=== PATIENT | female | born 1965 | race Caucasian/White ===

== ENCOUNTER 2022-01-20 06:23 | Outpatient (REF) | payer OTHER, SELFPAY ==
[2022-01-20 06:39] LABS: MANUAL DIFF FLAG NO
[2022-01-20 07:34] LABS: Basophils Absolute Auto 0.1 X10*3/uL (0.0-0.2); Basophils Percent Auto 0.5 % (0-2); Eosinophils Absolute Auto 0.2 X10*3/uL (0.0-0.4); Eosinophils Percent Auto 2.3 % (0-4); Hematocrit 45.5 % (37.0-47.0); Hemoglobin 14.5 g/dl (12.0-16.0); Imm Gran Abs Auto 0.04 X10*3/uL (0.00-0.03); Imm Gran Pct Auto 0.4 % (0.0-0.4); Lymphocytes Absolute Auto 2.8 X10*3/uL (1.2-4.9); Lymphocytes Percent Auto 26.8 % (20-40); Mean Corpuscular HGB Conc 31.9 g/dl (31.0-35.0); Mean Corpuscular Hemoglobin 27.9 pg (27.0-33.0); Mean Corpuscular Volume 87.7 fL (80.0-98.0); Mean Platelet Volume 11.2 fL (9.4-12.3); Monocytes Absolute Auto 0.8 X10*3/uL (0.1-1.2); Monocytes Percent Auto 7.1 % (2-11); Neutrophils Absolute Auto 6.6 x10*3/uL (2.0-8.3); Neutrophils Percent Auto 62.9 % (45-73); Platelet Count 226 X10*3/uL (160-400); Red Blood Count 5.19 X10*6/uL (4.20-5.50); Red Cell Distribution Width 12.7 % (11.0-16.0); White Blood Count 10.6 X10*3/uL (4.8-10.8)
[2022-01-20 08:04] LABS: Estimated Average Glucose 212 mg/dL
[2022-01-20 08:14] LABS: Alanine Aminotransferase 17 U/L (0-31); Alkaline Phosphatase 72 U/L (39-117); Anion Gap 13 (12-20); Aspartate Amino Transferase 19 U/L (5-31); Bilirubin Total 0.4 mg/dL (0.0-1.0); Blood Urea Nitrogen 16 mg/dL (9-16); Calcium 9.8 mg/dL (8.4-10.2); Carbon Dioxide 26 mmol/L (22-29); Chloride 103 mmol/L (96-108); Cholesterol 128 mg/dL; Estimated Glomerular Filt Rate > 60; Glucose Fasting 206 mg/dL (60-99); HDL Cholesterol 37 mg/dL; LDL Cholesterol Calculated 56 mg/dl; Potassium 4.9 mmol/L (3.3-5.1); Sodium 137 mmol/L (135-145); TSH reflex Free T4 1.27 uIU/mL (0.32-4.0); Total Protein 6.9 g/dL (6.5-8.0); Triglycerides 175 mg/dL
[2022-01-20 17:09] LABS: Microalbum/Creatinine Ratio Ur 60.2 ug/mg cr
== END 2022-01-20 06:24 | disposition home or self-care (01) ==
LOC: HO.LAB 06:23
PROVIDERS: PCP Internal Medicine; Visit Provider Nurse Practitioner Family
DX: E11.9 Type 2 diabetes mellitus without complications (principal); E78.00 Pure hypercholesterolemia, unspecified; I10 Essential (primary) hypertension
CPT/HCPCS: 36415; 80053; 80061; 82043; 83036; 84443; 85025

== ENCOUNTER 2022-01-23 07:57 | Outpatient (REF) | payer OTHER, SELFPAY ==
--- NOTE | ~2022-01-23 | MM_ITS ---
EXAMINATION: MM SCREENING DIGITAL BREAST TOMOSYNTHESIS, BILATERAL CLINICAL INFORMATION: Screening. Asymptomatic. Prior mammography over 10 years ago. Age 56. No known family history breast cancer. The lifetime risk of breast cancer based on the Tyrer-Cuzick Model is 6%. COMPARISON: None. TECHNIQUE: Digital breast tomosynthesis is performed in both the craniocaudal and mediolateral oblique views along with computer-aided detection (CAD). Synthesized 2D images are generated from the tomosynthesis. FINDINGS: The breasts are heterogeneously dense, which may obscure small masses (ACR BI-RADS breast composition Category c). Denser parenchymal pattern is predominantly in the bilateral anterior breasts. There is no significant mass or architectural abnormality or abnormal calcifications. The axilla and skin contours are unremarkable. MM/MM tomosynthesis screening BI IMPRESSION: No mammographic evidence of malignancy. ASSESSMENT: BI-RADS 1: Negative RECOMMENDATION: Routine annual mammography screening. This patient's information was entered into a reminder system with a target due date for their next mammogram.
== END 2022-01-23 07:58 | disposition home or self-care (01) ==
LOC: HO.MAMMO 07:57
PROVIDERS: Visit Provider Nurse Practitioner Family
DX: Z12.31 Encounter for screening mammogram for malignant neoplasm of breast (principal)
CPT/HCPCS: 77063; 77067

== ENCOUNTER 2022-04-26 08:08 | Outpatient (REF) | payer OTHER, SELFPAY ==
[2022-04-26 08:14] LABS: MANUAL DIFF FLAG NO
[2022-04-26 09:13] LABS: Basophils Percent Auto 0.4 % (0-2); Eosinophils Absolute Auto 0.2 X10*3/uL (0.0-0.4); Eosinophils Percent Auto 1.8 % (0-4); Hematocrit 44.5 % (37.0-47.0); Hemoglobin 14.5 g/dl (12.0-16.0); Imm Gran Abs Auto 0.03 X10*3/uL (0.00-0.03); Imm Gran Pct Auto 0.3 % (0.0-0.4); Lymphocytes Absolute Auto 2.4 X10*3/uL (1.2-4.9); Lymphocytes Percent Auto 23.3 % (20-40); Mean Corpuscular HGB Conc 32.6 g/dl (31.0-35.0); Mean Corpuscular Hemoglobin 28.7 pg (27.0-33.0); Mean Corpuscular Volume 87.9 fL (80.0-98.0); Mean Platelet Volume 10.9 fL (9.4-12.3); Monocytes Absolute Auto 0.6 X10*3/uL (0.1-1.2); Neutrophils Absolute Auto 6.9 x10*3/uL (2.0-8.3); Neutrophils Percent Auto 68.2 % (45-73); Platelet Count 265 X10*3/uL (160-400); Red Blood Count 5.06 X10*6/uL (4.20-5.50); Red Cell Distribution Width 13.4 % (11.0-16.0); White Blood Count 10.1 X10*3/uL (4.8-10.8)
[2022-04-26 09:24] LABS: Estimated Average Glucose 166 mg/dL; Hemoglobin A1c % 7.4 %
[2022-04-26 09:49] LABS: Alanine Aminotransferase 22 U/L (0-31); Albumin Level 4.1 g/dL (3.5-5.0); Alkaline Phosphatase 66 U/L (39-117); Anion Gap 16 (12-20); Aspartate Amino Transferase 27 U/L (5-31); Bilirubin Total 0.5 mg/dL (0.0-1.0); Blood Urea Nitrogen 12 mg/dL (9-16); Calcium 9.2 mg/dL (8.4-10.2); Carbon Dioxide 26 mmol/L (22-29); Chloride 102 mmol/L (96-108); Cholesterol 136 mg/dL; Estimated Glomerular Filt Rate > 60; Glucose Fasting 159 mg/dL (60-99); HDL Cholesterol 41 mg/dL; LDL Cholesterol Calculated 74 mg/dl; Potassium 4.7 mmol/L (3.3-5.1); Sodium 139 mmol/L (135-145); Triglycerides 108 mg/dL
== END 2022-04-26 08:09 | disposition home or self-care (01) ==
LOC: HO.LAB 08:08
PROVIDERS: PCP Internal Medicine; Visit Provider Nurse Practitioner Family
DX: E78.00 Pure hypercholesterolemia, unspecified (principal); E11.9 Type 2 diabetes mellitus without complications; I10 Essential (primary) hypertension
CPT/HCPCS: 36415; 80053; 80061; 83036; 85025

== ENCOUNTER 2022-09-29 08:43 | Outpatient (REF) | payer OTHER, SELFPAY ==
[2022-09-29 09:23] LABS: Estimated Average Glucose 157 mg/dL; Hemoglobin A1c % 7.1 %
[2022-09-29 09:43] LABS: Alanine Aminotransferase 16 U/L (0-31); Albumin Level 4.1 g/dL (3.5-5.0); Alkaline Phosphatase 78 U/L (39-117); Anion Gap 17 (12-20); Aspartate Amino Transferase 20 U/L (5-31); Bilirubin Total 0.5 mg/dL (0.0-1.0); Blood Urea Nitrogen 11 mg/dL (9-16); Calcium 9.4 mg/dL (8.4-10.2); Carbon Dioxide 27 mmol/L (22-29); Chloride 102 mmol/L (96-108); Cholesterol 126 mg/dL; Estimated Glomerular Filt Rate > 60; Glucose Random 161 mg/dL (60-115); HDL Cholesterol 43 mg/dL; LDL Cholesterol Calculated 59 mg/dl; Potassium 4.8 mmol/L (3.3-5.1); Sodium 141 mmol/L (135-145); Total Protein 7.1 g/dL (6.5-8.0); Triglycerides 122 mg/dL
[2022-09-29 13:31] LABS: Creatinine Urine 89.21 mg/dL; Microalbum/Creatinine Ratio Ur 219.7 ug/mg cr
== END 2022-09-29 08:44 | disposition home or self-care (01) ==
LOC: HO.LAB 08:43
PROVIDERS: PCP Internal Medicine; Visit Provider Nurse Practitioner Family
DX: E78.5 Hyperlipidemia, unspecified (principal); E11.9 Type 2 diabetes mellitus without complications
CPT/HCPCS: 36415; 80053; 80061; 82043; 83036

== ENCOUNTER 2022-12-28 14:00 | Outpatient (RCR) | payer OTHER, SELFPAY ==
--- NOTE | 2022-10-20 14:52 | MHC.PT.EP ---
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 IN JUNE WAS WALKING 2-3 MILES A DAY, BEGAN TO FEEL INCREASING PAIN. TOOK A BREAK FROM WALKING THEN IN AUGUST WENT TO [place] AND PAIN INCREASED AGAIN. WITH REST IMPROVED AGAIN BUT THEN ABOUT 1 WEEK AGO PAIN BEGAN AGAIN WITHOUT CEASAR. STAIRS ARE DIFFULT TO PRFORM. PAIN WILL BE SHARP AND TIMES AND WILL FEEL LIKE KNEE IS GOING TO GIVE OUT. REPORTS INTERMENT CREPTUS. UNSURE OF WHAT RELIEVES SYMPTOMS, NOT CURRENTLY TAKING ANY MEDICATION FOR PAIN. UPON EXAM SHE DEMONSTRATES DECREASED FOOT AND ANKLE MOBILITY, ALTERED GAIT PATTERN, DECREASED LE ROM AND STRENGTH, INCREASED TTP OVER ANTERIOR TIB AND PES ANSERINE BURSA. FUNCTIONAL LIMITATIONS INCLDE DECREASED ABILITY TO PERFORM WALKING, LONG PERIODS OF SITTING STATIC STANDING, DECREASED STAIR NEGOTIATION. SHE REPORTS DECREASED ABILITY TO PERFORM FUNCTIONAL SQUAT, DECREASED PARTICIPATION IN RECREATION AND FITNESS ACTIVITES, DISRUPTED SLEEP. Frequency and Duration: The patient will be seen 2 X WEEK FOR 3 WEEKS Short Term Goals: INITIATE HEP AND PROMOTE SELF MANAGEMENT OF SYMPTOMS Umbrella Finisher Goals: TO DEMONSTRATE FULL KNEE ROM, EQUAL ERWIN TO DEMONSTRATE FULL LE STRENGTH, EQUAL ERWIN TO ASCEND AND DESCEND STAIRS WITH RECIPROCAL GAIT WITHOUT TO AMBULATE AD MISTY ON LEVEL AND UNEVEN SURFACES FOR FITNESS WITHOUT PAIN GREATER THAN 2/10 TO PERFORM FULL FUNCTIONAL SQUAT WITHOUT SUBSTITUTION Treatment Plan: Modalities to reduce pain, spasms and effusion. Manual therapy to restore motion and function. Therapeutic exercise to improve strength and flexibility. Neuromuscular re-education for posture and balance. Therapeutic activities to return to functional activities of daily living. Electronically signed by: BARBARA LUNDY PT DPT Please sign and return to therapist. Thank you for your referral.
== END 2023-01-15 08:36 | disposition home or self-care (01) ==
LOC: HO.PT 14:00
PROVIDERS: PCP Internal Medicine; Visit Provider Nurse Practitioner Family
DX: M25.561 Pain in right knee (principal)
CPT/HCPCS: 97033; 97110; 97140; 97161; 97530

== ENCOUNTER 2023-02-16 16:05 | Outpatient (REF) | payer OTHER, SELFPAY ==
--- NOTE | ~2023-02-16 | MM_ITS ---
EXAMINATION: MM SCREENING DIGITAL BREAST TOMOSYNTHESIS, BILATERAL CLINICAL INFORMATION: Screening. Asymptomatic. The lifetime risk of breast cancer based on the Tyrer-Cuzick Model is 4%. COMPARISON: Mammography: 01/23/2022 (new baseline) TECHNIQUE: Digital breast tomosynthesis is performed in both the craniocaudal and mediolateral oblique views along with computer-aided detection (CAD). Synthesized 2D images are generated from the tomosynthesis. FINDINGS: The breasts are heterogeneously dense, which may obscure small masses (ACR BI-RADS breast composition Category c). There are no significant masses, abnormal calcifications, or other abnormalities. Parenchymal pattern is similar to prior exam. There is no architectural abnormality or developing density. Intramammary node posterior upper outer left breast is stable. The axilla and skin contours are unremarkable. No significant changes. MM/MM tomosynthesis screening BI IMPRESSION: No mammographic evidence of malignancy. ASSESSMENT: BI-RADS 1: Negative RECOMMENDATION: Routine annual mammography screening. This patient's information was entered into a reminder system with a target due date for their next mammogram.
== END 2023-02-16 16:06 | disposition home or self-care (01) ==
LOC: HO.MAMMO 16:05
PROVIDERS: PCP Internal Medicine; Visit Provider Internal Medicine
DX: Z12.31 Encounter for screening mammogram for malignant neoplasm of breast (principal)
CPT/HCPCS: 77063; 77067

== ENCOUNTER → 2023-03-09 07:49 | Outpatient (BNVA) | payer OTHER, SELFPAY | PROVIDERS: PCP Internal Medicine; Visit Provider Advanced Practice Midwife ==

== ENCOUNTER 2023-06-18 11:07 | Outpatient (AMB) | payer OTHER, SELFPAY ==
--- NOTE | 2023-06-18 11:12 | MHC.PC.OV ---
Vital Signs 06/18/23 11:16 Height 5 ft 3 in Weight 228 lb BMI 40.4 BP 136/82 Blood Pressure Location Lt brachial Position Sitting Intake Visit Reasons: dm Intake Note: Patient here for a follow up DM Counter Former Required: No Accompanied by: Self / Same As Patient Allergies Penicillins Allergy (Intermediate, Verified 06/18/23 11:23) Anaphylaxis Medication List - Last Reconciled 06/18/23 by Miranda Trejo MD aspirin 81 mg PO DAILY blood sugar diagnostic test twice a day dulaglutide (Trulicity) 0.75 mg (0.5 mL) subcut QWEEK 30 days glipizide 5 mg PO BID 90 days lisinopril 10 mg PO DAILY 90 days metformin 1,000 mg (2 x 500 mg) PO BID 90 days simvastatin 20 mg PO BEDTIME Tobacco use date assessed: 09/29/22 Dental Screening Dental Screen Date: 06/18/23 Did you have a dental visit in the last 12 months?: No Did you have a dental problem in the last 6 months where you did not have access to dental care?: No Was dental information given to patient?: Patient has dentist HPI HPI Comments History of Present Illness Details This is a 57-year-old female with diabetes mellitus type 2, hypertension, hyperlipidemia and morbid obesity that comes today for follow-up on her conditions. A1c very close to goal and has markedly improved from last office visit. Blood pressure stable. Lipid panel will be order and her LDL goal should be less than 70. She is morbidly obese with a BMI of 40.4 and was advised to diet and exercise to reach BMI goal less than 30. Also microalbumin is elevated and will be repeated. 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 Gilbert Dumont, Supriya Cifuentes, Abilio Moffett and colleagues, with an educational brielle from [employer]. Review of Systems Const All systems reviewed & are unremarkable except as noted in HPI and below Eyes Reports no additional complaints, Denies change in vision and Denies other visual disturbances Card Denies chest pain at rest, Denies chest pain with activity, Denies edema, Denies irregular heart rhythm, Denies claudication, Denies dyspnea, Denies dyspnea on exertion, Denies orthopnea, Denies paroxysmal nocturnal dyspnea and Denies slow heart rate Resp Denies cough, Denies dyspnea and Denies dyspnea on exertion GI Denies abdominal pain, Denies change in bowel habits, Denies excessive flatus, Denies nausea and Denies vomiting Denies urinary incontinence, Denies urinary hesitancy and Denies urinary urgency Musc Denies abnormal gait, Denies atrophy, Denies deformity and Denies limited range of motion Skin/Breast Denies bleeding lesions, Denies changing lesions and Denies rash Neuro Denies abnormal gait and Denies lack of coordination Physical exam (Primary Care) Vital Signs: Last Vital Signs BP 136/82 06/18/23 11:16 BMI result Body Mass Index 40.4 Tobacco/Smoking Status: Tobacco use Status Tobacco use date assessed 09/29/22 06/18/23 11:15 Patient Tobacco Use Status Current everyday Tobacco 06/18/23 11:15 Tobacco use type Cigarette 06/18/23 11:15 e-Cigarette/Vaping Use Never Used 06/18/23 11:15 Thrive Assessment: Date of Thrive Assessment Date Thrive assessed 09/29/22 06/18/23 11:15 Eyes General: appearance normal, both eyes and all related structures Eyelids: Yes eyelids normal Conjunctivae: conjunctivae normal Neck Neck: Yes normal visual inspection and Yes supple Resp Effort & Inspection: normal respiratory effort Auscultation: clear to auscultation bilaterally Cardio Jugular venous distension: no JVD Rate: regular rate Rhythm: regular rhythm Heart sounds: S1 normal heart sound present and S2 normal heart sound present Extrem General: Yes full ROM Office Procedures Flu Questionnaire Does the patient have a severe egg allergy?: No Results AMB Hemoglobin A1c AMB Hemoglobin A1c 7.2 % Last Edit by SHANT Hare on 06/18/23 11:27 Immunizations flu vacc [id number] 6mos up(PF) 60 mcg(15 mcgx4)/0.5 mL IM syringe Performing Provider: Miranda Trejo MD [facility] Documented (not given) by: SHANT Hare on 06/18/23 11:20 Reason Not Given: Patient Refused Assessment and Plan Assessment & Plan (1) Diabetes mellitus: Code(s): E11.9 - Type 2 diabetes mellitus without complications Plan: Continue metformin, glipizide and Trulicity. A1c goal is equal or less than 7%. (2) Essential hypertension: Code(s): I10 - Essential (primary) hypertension Plan: Continue lisinopril. Blood pressure goal is equal or less than 130/80. (3) Hyperlipidemia: Code(s): E78.5 - Hyperlipidemia, unspecified Plan: Continue statins. LDL goal is less than 70. (4) Morbid obesity: Code(s): E66.01 - Morbid (severe) obesity due to excess calories Plan: Start diet and exercise. BMI goal is less than 30. Orders: Orders Microalbumin, Random (w Creat) 4 Months E11.9 - Type 2 diabetes mellitus without complications Comprehensive [place]. Panel Fast 4 Months I10 - Essential (primary) hypertension AMB Hemoglobin A1c Today E11.9 - Type 2 diabetes mellitus without complications Influenza [id number] Immunization Today Z23 - Encounter for immunization Lipid Panel 4 Months E78.5 - Hyperlipidemia, unspecified Coding Level of Care Code Est Pt Level 4 (38784) Diagnoses Diabetes mellitus E11.9 Essential hypertension I10 Hyperlipidemia E78.5 Morbid obesity E66.01 Time Spent (min) 23
[2023-06-18 11:16] VITALS: BP 136/82; BMI 40.4
== END 2023-06-18 11:29 | disposition home or self-care (01) ==
PROVIDERS: Visit Provider Internal Medicine
DX: E11.9 Type 2 diabetes mellitus without complications (principal); I10 Essential (primary) hypertension; E66.01 Morbid (severe) obesity due to excess calories; Z68.41 Body mass index [BMI] 40.0-44.9, adult
CPT/HCPCS: 83036; 99214

== ENCOUNTER 2024-01-29 06:16 | Outpatient (REF) | payer OTHER, SELFPAY ==
[2024-01-29 08:40] LABS: Alanine Aminotransferase 27 U/L (0-31); Alkaline Phosphatase 87 U/L (39-117); Anion Gap 17 (12-20); Aspartate Amino Transferase 38 U/L (5-31); Bilirubin Total 0.5 mg/dL (0.0-1.0); Blood Urea Nitrogen 22 mg/dL (9-16); Calcium 9.5 mg/dL (8.4-10.2); Carbon Dioxide 23 mmol/L (22-29); Chloride 103 mmol/L (96-108); Cholesterol 114 mg/dL (<200); Estimated Glomerular Filt Rate > 60; Glucose Fasting 328 mg/dL (60-99); HDL Cholesterol 41 mg/dL (>40); LDL Cholesterol Calculated 54 mg/dL (<100); Potassium 5.1 mmol/L (3.3-5.1); Sodium 138 mmol/L (135-145); Total Protein 7.6 g/dL (6.5-8.0); Triglycerides 95 mg/dL (<150)
[2024-01-29 08:57] LABS: Vitamin D 25-OH Total 18.5 ng/mL (>30)
[2024-01-29 18:43] LABS: Creatinine Urine 58.38 mg/dL; Microalbum/Creatinine Ratio Ur 111.3 ug/mg cr (<30)
== END 2024-01-29 06:17 | disposition home or self-care (01) ==
LOC: HO.LAB 06:16
PROVIDERS: PCP Internal Medicine; Visit Provider Internal Medicine
DX: E11.9 Type 2 diabetes mellitus without complications (principal); E78.5 Hyperlipidemia, unspecified; E55.9 Vitamin D deficiency, unspecified
CPT/HCPCS: 36415; 80053; 80061; 82043; 82306; 82570

== ENCOUNTER 2024-01-30 14:48 | Outpatient (AMB) | payer OTHER, SELFPAY ==
[2024-01-30 14:53] VITALS: BP 146/70; BMI 40.9
--- NOTE | 2024-01-30 14:53 | MHC.PC.OV ---
Vital Signs 01/30/24 14:53 01/30/24 15:26 Height 5 ft 3 in Weight 231 lb BMI 40.9 BP 146/70 H 140/70 H Blood Pressure Location Lt brachial Lt brachial Position Sitting Sitting Intake Visit Reasons: DM Intake Note: Patient here for a follow up DM Auditor In Charge Required: No Accompanied by: Self / Same As Patient Allergies Penicillins Allergy (Intermediate, Verified 01/30/24 15:11) Anaphylaxis Medication List - Last Reconciled 01/30/24 by Miranda Trejo MD aspirin 81 mg PO DAILY blood sugar diagnostic test twice a day dulaglutide (Trulicity) 0.75 mg (0.5 mL) subcut QWEEK 30 days glipizide 5 mg PO BID 90 days lisinopril 10 mg PO DAILY 90 days metformin 1,000 mg (2 x 500 mg) PO BID 90 days simvastatin 20 mg PO BEDTIME Tobacco use date assessed: 01/30/24 Dental Screening Dental Screen Date: 01/30/24 Did you have a dental visit in the last 12 months?: No Did you have a dental problem in the last 6 months where you did not have access to dental care?: No Was dental information given to patient?: Patient has dentist HPI HPI Comments History of Present Illness Details This is a 58-year-old female with diabetes mellitus type 2, hypertension, hyperlipidemia and morbid obesity that comes today for follow-up on her conditions. A1c elevated and she declines insulin. Has not used Trulicity in about a month. I will change Trulicity to Ozempic. Blood pressure borderline stable. LDL within goal. She is morbidly obese with a BMI of 40.9 and was advised to diet and exercise as tolerated to reach BMI goal less than 30. 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 1. Little interest or pleasure in doing things: not at all 2. Feeling down, depressed, or hopeless: not at all 3. Trouble falling or staying asleep, or sleeping too much: not at all 4. Feeling tired or having little energy: not at all 5. Poor appetite or overeating: not at all 6. Feeling bad about yourself - or that you are a failure or have let yourself or your family down: not at all 7. Trouble concentrating on things, such as reading the newspaper or watching television: not at all 8. Moving or speaking so slowly that other people could have noticed. Or the opposite - being so fidgety or restless that you have been moving around a lot more than usual: not at all 9. Thoughts that you would be better off or of hurting yourself in some way: not at all Total score: 0 Source: Developed by Drs. Gilbert Dumont, Supriya Cifuentes, Abilio Moffett and colleagues, with an educational brielle from [employer]. Thrive Questionnaire Date Thrive assessed: 01/30/24 I am a: Patient What is your living situation today?: I have a steady place to live Within the past 12 months, did the food you bought not last and you didn't have the money to get more?: Never true Within the past 12 months, did you worry whether your food would run out before you got money to buy more?: Never true Do you have trouble paying for medicines?: No Do you have trouble getting transportation to medical appointments?: No Do you have trouble paying your heating and electricity bill?: No Do you have trouble taking care of your child, family member or friend?: No Do you have trouble with day-to-day activities such as bathing, preparing meals, shopping, managing finances, etc.?: No Are you currently unemployed and looking for a job?: No Are you interested in more education?: No Please select the resources that you would like help with: None Currently or been in a relationship where the following occur: no concerns reported THRIVE Score: 0 AUDIT C Alcohol Use Questionnaire (AUDIT-C) 1. How often do you have a drink containing alcohol?: Never Total Score: 0 GARRY-7 AMB Questionnaire GARRY-7 Date GARRY - 7 assessed: 01/30/24 Feeling nervous, anxious, or on edge: 0 = Not at all Not being able to stop or control worryin = Not at all Worrying too much about different things: 0 = Not at all Trouble relaxin = Not at all Being so restless that it is hard to sit still: 0 = Not at all Becoming easily annoyed or irritable: 0 = Not at all Feeling afraid as if something awful might happen: 0 = Not at all Total GARRY-7 score (0-4 normal; 5-9 mild; 10-14 moderate; 15-21 severe): 0 Source: Developed by Drs. Gilbert Dumont, Supriya Cifuentes, Abilio Moffett and colleagues, with an educational brielle from [employer]. Review of Systems Const All systems reviewed & are unremarkable except as noted in HPI and below Eyes Reports no additional complaints, Denies change in vision and Denies other visual disturbances Card Denies chest pain at rest, Denies chest pain with activity, Denies edema, Denies irregular heart rhythm, Denies claudication, Denies dyspnea, Denies dyspnea on exertion, Denies orthopnea, Denies paroxysmal nocturnal dyspnea and Denies slow heart rate Resp Denies cough, Denies dyspnea and Denies dyspnea on exertion GI Denies abdominal pain, Denies change in bowel habits, Denies excessive flatus, Denies nausea and Denies vomiting Denies urinary incontinence, Denies urinary hesitancy and Denies urinary urgency Musc Denies abnormal gait, Denies atrophy, Denies deformity and Denies limited range of motion Skin/Breast Denies bleeding lesions, Denies changing lesions and Denies rash Neuro Denies abnormal gait and Denies lack of coordination Physical exam (Primary Care) Vital Signs: Last Vital Signs BP 146/70 H 01/30/24 14:53 BMI result Body Mass Index 40.9 BMI Assessment/Plan discussion: High BMI High, discussed plan: lifestyle, weight reduction, dietary and physical activity Tobacco/Smoking Status: Tobacco use Status Tobacco use date assessed 01/30/24 01/30/24 14:56 Patient Tobacco Use Status Former Tobacco user 01/30/24 15:03 Tobacco use type Cigarette 01/30/24 14:56 e-Cigarette/Vaping Use Currently Using 01/30/24 15:03 PHQ-9: PHQ-9 Score PHQ-9: Total score 0 01/30/24 15:11 Thrive Assessment: Date of Thrive Assessment Date Thrive assessed 01/30/24 01/30/24 14:56 Currently or been in a relationship where the following occur: no concerns reported Resp Effort & Inspection: normal respiratory effort Auscultation: clear to auscultation bilaterally Cardio Jugular venous distension: no JVD Rate: regular rate Rhythm: regular rhythm Heart sounds: S1 normal heart sound present and S2 normal heart sound present Extrem General: Yes full ROM Results AMB Hemoglobin A1c AMB Hemoglobin A1c 11.5 % Last Edit by SHANT Hare on 01/30/24 15:13 Assessment and Plan Assessment & Plan (1) Diabetes mellitus: Code(s): E11.9 - Type 2 diabetes mellitus without complications Qualifiers: Diabetes mellitus type: type 2 Diabetes mellitus superintendent container terminal insulin use: without superintendent container terminal use Diabetes mellitus complication status: with hyperglycemia Qualified Code(s): E11.65 - Type 2 diabetes mellitus with hyperglycemia Plan: Continue metformin. Continue glipizide. Discontinue Trulicity. Start Ozempic. A1c goal is equal or less than 7%. (2) Essential hypertension: Code(s): I10 - Essential (primary) hypertension Plan: Continue lisinopril. Blood pressure goal is equal or less than 130/80. (3) Hyperlipidemia: Code(s): E78.5 - Hyperlipidemia, unspecified Qualifiers: Hyperlipidemia type: pure hypercholesterolemia Qualified Code(s): E78.00 - Pure hypercholesterolemia, unspecified Plan: Continue statins. LDL goal is less than 70. (4) Morbid obesity: Code(s): E66.01 - Morbid (severe) obesity due to excess calories Plan: Start diet and exercise. BMI goal is less than 30. Orders: Orders AMB Hemoglobin A1c Today E11.9 - Type 2 diabetes mellitus without complications Microalbumin, Random (w Creat) 4 Months E11.9 - Type 2 diabetes mellitus without complications Comprehensive [place]. Panel Fast 4 Months E11.9 - Type 2 diabetes mellitus without complications Lipid Panel 4 Months E78.5 - Hyperlipidemia, unspecified Medications: New cholecalciferol (vitamin D3) 50 mcg PO DAILY 90 days 90 caps 1RF semaglutide (Ozempic) for 4 weeks 0.25 mg (0.368 mL) subcut QWEEK 4 weeks 1.472 mL 0RF Discontinued dulaglutide (Trulicity) Discontinued Reason: Patient Completed Course 0.75 mg (0.5 mL) subcut QWEEK 30 days 2.5 mL 3RF E11.9 - Type 2 diabetes mellitus without complications Coding Level of Care Code Est Pt Level 4 (20510) Diagnoses Type 2 diabetes mellitus with hyperglycemia, without long-term current use of insulin E11.65 Diabetes mellitus type: type 2 Diabetes mellitus superintendent container terminal insulin use: without senior living use Diabetes mellitus complication status: with hyperglycemia Essential hypertension I10 Pure hypercholesterolemia E78.00 Hyperlipidemia type: pure hypercholesterolemia Morbid obesity E66.01 Time Spent (min) 25
[2024-01-30 15:26] VITALS: BP 140/70
== END 2024-01-30 15:26 | disposition home or self-care (01) ==
PROVIDERS: PCP Internal Medicine; Visit Provider Internal Medicine
DX: E11.65 Type 2 diabetes mellitus with hyperglycemia (principal); E66.01 Morbid (severe) obesity due to excess calories; E11.9 Type 2 diabetes mellitus without complications; Z68.41 Body mass index [BMI] 40.0-44.9, adult; I10 Essential (primary) hypertension; E78.00 Pure hypercholesterolemia, unspecified
CPT/HCPCS: 83036; 99214

== ENCOUNTER 2024-02-18 08:20 | Outpatient (AMB) | payer OTHER, SELFPAY ==
--- NOTE | 2024-02-18 08:31 | MHC.PC.OV ---
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 Required: No Accompanied by: Self / Same As Patient Allergies Penicillins Allergy (Intermediate, Verified 02/18/24 08:45) Anaphylaxis Medication List - Last Reconciled 02/18/24 by Miranda Trejo MD aspirin 81 mg PO DAILY blood sugar diagnostic test twice a day cholecalciferol (vitamin D3) 50 mcg PO DAILY 90 days glipizide 5 mg PO BID 90 days lisinopril 10 mg PO DAILY 90 days metformin 1,000 mg (2 x 500 mg) PO BID 90 days semaglutide (Ozempic) 0.25 mg (0.368 mL) subcut QWEEK 4 weeks simvastatin 20 mg PO BEDTIME Tobacco use date assessed: 01/30/24 Dental Screening Dental Screen Date: 01/30/24 HPI HPI Comments History of Present Illness Details This is a 58-year-old female with diabetes mellitus type 2 and morbid obesity that comes for her physical exam. A1c not on goal and I will add Jardiance. Ozempic will eventually be increased. She declines insulin. Last diabetic eye exam was over a year ago and will be refer. She is morbidly obese with a BMI of 40.6 and declines weight loss surgery. LDL within goal. Blood pressure stable. Mammogram done 03/06/2023. Hysterectomy in her 30s for benign reasons therefore no need for Pap smear. DEXA scan will be ordered. Last colonoscopy was at 50 years old and was normal and next colonoscopy will be at 60 years old. No chest pain or shortness on breath. No acute complaints. 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 1. Little interest or pleasure in doing things: not at all 2. Feeling down, depressed, or hopeless: not at all 3. Trouble falling or staying asleep, or sleeping too much: not at all 4. Feeling tired or having little energy: not at all 5. Poor appetite or overeating: not at all 6. Feeling bad about yourself - or that you are a failure or have let yourself or your family down: not at all 7. Trouble concentrating on things, such as reading the newspaper or watching television: not at all 8. Moving or speaking so slowly that other people could have noticed. Or the opposite - being so fidgety or restless that you have been moving around a lot more than usual: not at all 9. Thoughts that you would be better off or of hurting yourself in some way: not at all Total score: 0 Depression Screening Interpretation: Negative Depression Screening Done: Yes 24609 - PHQ-9 Billing: Yes Source: Developed by Drs. Gilbert Dumont, Supriya Cifuentes, Abilio Moffett and colleagues, with an educational brielle from [employer]. Thrive Questionnaire Date Thrive assessed: 02/18/24 I am a: Patient What is your living situation today?: I have a steady place to live Within the past 12 months, did the food you bought not last and you didn't have the money to get more?: Never true Within the past 12 months, did you worry whether your food would run out before you got money to buy more?: Never true Do you have trouble paying for medicines?: No Do you have trouble getting transportation to medical appointments?: No Do you have trouble paying your heating and electricity bill?: No Do you have trouble taking care of your child, family member or friend?: No Do you have trouble with day-to-day activities such as bathing, preparing meals, shopping, managing finances, etc.?: No Are you currently unemployed and looking for a job?: No Are you interested in more education?: No Please select the resources that you would like help with: None Currently or been in a relationship where the following occur: no concerns reported THRIVE Score: 0 AUDIT C Alcohol Use Questionnaire (AUDIT-C) 1. How often do you have a drink containing alcohol?: Never Total Score: 0 Score Reviewed/Action Taken: No GARRY-7 AMB Questionnaire GARRY-7 Date GARRY - 7 assessed: 02/18/24 Feeling nervous, anxious, or on edge: 0 = Not at all Not being able to stop or control worryin = Not at all Worrying too much about different things: 0 = Not at all Trouble relaxin = Not at all Being so restless that it is hard to sit still: 0 = Not at all Becoming easily annoyed or irritable: 0 = Not at all Feeling afraid as if something awful might happen: 0 = Not at all Total GARRY-7 score (0-4 normal; 5-9 mild; 10-14 moderate; 15-21 severe): 0 Source: Developed by Drs. Gilbert Dumont, Supriya Cifuentes, Abilio Moffett and colleagues, with an educational brielle from [employer]. GARRY-7 Assessment Billing GARRY-7 Assessment Tool: GARRY-7 Assessment 49631 Review of Systems Const All systems reviewed & are unremarkable except as noted in HPI and below Card Denies chest pain at rest, Denies chest pain with activity, Denies edema, Denies irregular heart rhythm, Denies claudication, Denies dyspnea, Denies dyspnea on exertion, Denies orthopnea, Denies paroxysmal nocturnal dyspnea and Denies slow heart rate Resp Denies cough, Denies dyspnea and Denies dyspnea on exertion GI Denies abdominal pain, Denies change in bowel habits, Denies excessive flatus, Denies nausea and Denies vomiting Denies urinary incontinence, Denies urinary hesitancy and Denies urinary urgency Neuro Denies behavioral changes, Denies confusion and Denies lack of coordination Psych Denies behavioral changes and Denies confusion Physical exam (Primary Care) Vital Signs: Last Vital Signs BP 132/68 02/18/24 08:33 BMI result Body Mass Index 40.6 BMI Assessment/Plan discussion: High BMI High, discussed plan: lifestyle, weight reduction, dietary and physical activity Tobacco/Smoking Status: Tobacco use Status Tobacco use date assessed 01/30/24 02/18/24 08:37 Patient Tobacco Use Status Former Tobacco user 02/18/24 08:37 Tobacco use type Cigarette 02/18/24 08:37 e-Cigarette/Vaping Use Currently Using 02/18/24 08:37 PHQ-9: PHQ-9 Score PHQ-9: Total score 0 02/18/24 08:50 Depression Screening Interpretation: Negative Thrive Assessment: Date of Thrive Assessment Date Thrive assessed 02/18/24 02/18/24 08:37 Currently or been in a relationship where the following occur: no concerns reported Const General: No confusion Orientation/consciousness: patient oriented x3 and No confusion HENMT Head: Yes normal to inspection, Yes normocephalic and Yes atraumatic Ears: external ears normal General nose exam: Normal external nose present and No nasal discharge present Eyes General: appearance normal, both eyes and all related structures Eyelids: Yes eyelids normal Conjunctivae: conjunctivae normal Neck Neck: Yes normal visual inspection and Yes supple Resp Effort & Inspection: normal respiratory effort Auscultation: clear to auscultation bilaterally Cardio Jugular venous distension: no JVD Rate: regular rate Rhythm: regular rhythm Heart sounds: S1 normal heart sound present and S2 normal heart sound present GI Inspection: Yes normal to inspection Palpation (GI): Soft to palpation and nontender Auscultation: normal bowel sounds Skin General skin exam: no rashes or lesions noted Neuro General: patient oriented x3, no focal motor deficits and No confusion Extrem General: Yes full ROM Psych Appearance: grossly normal Assessment and Plan Assessment & Plan (1) Physical exam: Code(s): Z00.00 - Encounter for general adult medical examination without abnormal findings Plan: Repeat in a year. (2) Morbid obesity: Code(s): E66.01 - Morbid (severe) obesity due to excess calories Plan: Start diet and exercise. BMI goal is less than 30. (3) Diabetes mellitus: Code(s): E11.9 - Type 2 diabetes mellitus without complications Qualifiers: Diabetes mellitus type: type 2 Diabetes mellitus supervisor intermediates insulin use: without supervisor intermediates use Diabetes mellitus complication status: with hyperglycemia Qualified Code(s): E11.65 - Type 2 diabetes mellitus with hyperglycemia Plan: Continue metformin, glipizide and Ozempic. Start Jardiance. Patient declines insulin. A1c goal is equal or less than 7%. Orders: Orders MM screening mammo BI Today Z12.31 - Encounter for screening mammogram for malignant neoplasm of breast XR DEXA axial skeleton Today N95.9 - Unspecified menopausal and perimenopausal disorder Lipid Panel 4 Months E78.5 - Hyperlipidemia, unspecified Microalbumin, Random (w Creat) 4 Months E11.9 - Type 2 diabetes mellitus without complications Vitamin D 25-OH Total 4 Months E55.9 - Vitamin D deficiency, unspecified Comprehensive [place]. Panel Fast 4 Months E11.65 - Type 2 diabetes mellitus with hyperglycemia Referrals Ophthalmology Referral E11.65 - Type 2 diabetes mellitus with hyperglycemia Medications: New empagliflozin (Jardiance) 10 mg PO DAILY 90 tabs 1RF 90 days Coding Level of Care Code Est Pt Prev Care 40-64y(22374) Diagnoses Physical exam Z00.00 Morbid obesity E66.01 Type 2 diabetes mellitus with hyperglycemia, without long-term current use of insulin E11.65 Diabetes mellitus type: type 2 Diabetes mellitus supervisor intermediates insulin use: without supervisor intermediates use Diabetes mellitus complication status: with hyperglycemia Additional Codes GARRY-7 Assessment Billing - GARRY-7 Assessment Tool: GARRY-7 Assessment [id number] ([id number]) Time Spent (min) 35
[2024-02-18 08:33] VITALS: BP 132/68; BMI 40.6
== END 2024-02-18 08:56 | disposition home or self-care (01) ==
PROVIDERS: Visit Provider Internal Medicine
DX: Z00.00 Encounter for general adult medical examination without abnormal findings (principal); E66.01 Morbid (severe) obesity due to excess calories; Z68.41 Body mass index [BMI] 40.0-44.9, adult; E11.65 Type 2 diabetes mellitus with hyperglycemia
CPT/HCPCS: 99396

== ENCOUNTER 2024-03-18 13:02 | Outpatient (REF) | payer OTHER, SELFPAY ==
--- NOTE | ~2024-03-18 | MM_ITS ---
EXAMINATION: BONE DENSITOMETRY CLINICAL INDICATION: Menopause. COMPARISON: This is the patient's baseline examination. TECHNIQUE: Using a Simpli[employer]ity DXA System (software version: 13.1) manufactured by [employer], dual-energy x-ray absorptiometry was performed of the lumbar spine and left hip. The images are of good technical quality. Summary results are attached. FINDINGS: LEFT FEMUR, NECK: BMD 0.982 g/cm2, Z-score 0.0, T-score -0.4, normal. LEFT FEMUR, TOTAL: BMD 1.205 g/cm2, Z-score 1.6, T-score 1.6, normal. AP SPINE L1-L2 (excluding L3 and L4): The data of L1-L4 has been changed to exclude the L3 and L4 vertebral bodies, because degenerative sclerosis at these levels may cause overestimation of lumbar spine density. BMD 1.144 g/cm2, Z-score -0.3, T-score -0.2, normal. IDENTIFIED RISK FACTORS: Early menopause, hysterectomy, secondary osteoporosis. HISTORY OF FRACTURE: None listed. MEDICATIONS: Vitamin D. MM/XR DEXA axial skeleton IMPRESSION: 1. DIAGNOSIS: Normal bone density based on the lowest T-score value of -0.4 in the femoral neck applying World Health Organization criteria. 2. 10-YEAR FRACTURE RISK PREDICTION, FRAX: According to the guidelines, FRAX calculation should only be performed on patients in the osteopenia bone density category. Therefore, FRAX was not performed on this patient. 3. Treatment Recommendations: NOF guidelines recommend consideration for treatment in postmenopausal women and men age 50 and older presenting with the following: -A hip or vertebral (clinical or morphometric) fracture. -T-score less than or equal to -2.5 at the femoral neck or spine after appropriate evaluation to exclude secondary causes. -Low bone mass at the hip or spine and a 10-year fracture probability by FRAX of greater than or equal to 3% for hip fracture or greater than or equal to 20% for major osteoporotic fracture based on the [place] adapted WHO algorithm. 4. Other Recommendations: All treatment decisions require clinical judgment and consideration of individual patient factors, including patient preferences, comorbidities, previous drug use, risk factors not captured in the FRAX model (e.g. frailty, falls, vitamin D deficiency, increased bone turnover, interval significant decline in bone density) and possible under or overestimation of fracture risk by FRAX. FUTURE SCAN RECOMMENDATION: People with diagnosed cases of osteoporosis or at high risk for fracture should have regular bone mineral density tests. For patients eligible for Medicare, routine testing is allowed once every 2 years. The testing frequency can be increased to one year for patients who have rapidly progressing disease, those who are receiving or discontinuing medical therapy to restore bone mass, or have additional risk factors.
--- NOTE | ~2024-03-18 | MM_ITS ---
EXAMINATION: MM SCREENING DIGITAL BREAST TOMOSYNTHESIS, BILATERAL CLINICAL INFORMATION: Screening. Asymptomatic. COMPARISON: Mammography: This study is compared with prior exams dating back to TECHNIQUE: Digital breast tomosynthesis is performed in both the craniocaudal and mediolateral oblique views along with computer-aided detection (CAD). Synthesized 2D images are generated from the tomosynthesis. FINDINGS: The breasts are heterogeneously dense, which may obscure small masses (ACR BI-RADS breast composition Category c). There are no significant masses, abnormal calcifications, or other abnormalities. MM/MM tomosynthesis screening BI IMPRESSION: No mammographic evidence of malignancy. ASSESSMENT: BI-RADS BI-RADS 1 - Negative RECOMMENDATION: Routine annual mammography screening. 1 year F/U This examination should not preclude the clinical evaluation of a suspicious palpable abnormality. This patient's information was entered into a reminder system with a target due date for their next mammogram.
== END 2024-03-18 13:03 | disposition home or self-care (01) ==
LOC: HO.MAMMO 13:02
PROVIDERS: PCP Internal Medicine; Visit Provider Internal Medicine
DX: Z12.31 Encounter for screening mammogram for malignant neoplasm of breast (principal); Z13.820 Encounter for screening for osteoporosis; Z78.0 Asymptomatic menopausal state
CPT/HCPCS: 77063; 77067; 77080

== ENCOUNTER → 2024-03-18 13:15 | Outpatient (BNV) | payer OTHER, SELFPAY | PROVIDERS: PCP Internal Medicine; Visit Provider Radiology Diagnostic Radiology | DX: Z12.31 Encounter for screening mammogram for malignant neoplasm of breast (principal) | CPT/HCPCS: 77063; 77067 ==

== ENCOUNTER 2024-05-06 07:55 | Outpatient (AMB) | payer OTHER, SELFPAY ==
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
[2024-05-06 08:02] VITALS: BP 122/78; BMI 40.7
== END 2024-05-06 08:36 | disposition home or self-care (01) ==
PROVIDERS: PCP Internal Medicine; Visit Provider Advanced Practice Midwife
DX: Z01.419 Encounter for gynecological examination (general) (routine) without abnormal findings (principal)
CPT/HCPCS: 99396

== ENCOUNTER → 2024-05-06 07:55 | Outpatient (BNVA) | payer OTHER, SELFPAY | PROVIDERS: PCP Internal Medicine; Visit Provider Advanced Practice Midwife ==

== ENCOUNTER 2024-06-04 08:08 | Outpatient (REF) | payer OTHER, SELFPAY ==
[2024-06-04 09:07] LABS: Alanine Aminotransferase 27 U/L (0-31); Albumin Level 4.1 g/dL (3.5-5.0); Alkaline Phosphatase 69 U/L (39-117); Anion Gap 13 (12-20); Aspartate Amino Transferase 33 U/L (5-31); Bilirubin Total 0.3 mg/dL (0.0-1.0); Blood Urea Nitrogen 17 mg/dL (9-16); Calcium 9.8 mg/dL (8.4-10.2); Carbon Dioxide 27 mmol/L (22-29); Chloride 104 mmol/L (96-108); Cholesterol 106 mg/dL (<200); Estimated Glomerular Filt Rate > 60; Glucose Fasting 145 mg/dL (60-99); HDL Cholesterol 36 mg/dL (>40); LDL Cholesterol Calculated 54 mg/dL (<100); Potassium 4.8 mmol/L (3.3-5.1); Sodium 139 mmol/L (135-145); Triglycerides 84 mg/dL (<150)
[2024-06-04 09:28] LABS: Vitamin D 25-OH Total 34.1 ng/mL (>30)
[2024-06-04 10:32] LABS: Creatinine Urine 71.42 mg/dL; Microalbum/Creatinine Ratio Ur 30.8 ug/mg cr (<30)
[2024-06-10 15:13] LABS: Vitamin D 25-OH, D2 <4 ng/mL; Vitamin D 25-OH, D3 32 ng/mL; Vitamin D 25-OH, Total 32 ng/mL (30-100)
== END 2024-06-04 08:09 | disposition home or self-care (01) ==
LOC: HO.LAB 08:08
PROVIDERS: PCP Internal Medicine; Visit Provider Internal Medicine
DX: E11.65 Type 2 diabetes mellitus with hyperglycemia (principal); I10 Essential (primary) hypertension; E78.5 Hyperlipidemia, unspecified; E55.9 Vitamin D deficiency, unspecified
CPT/HCPCS: 36415; 80053; 80061; 82043; 82306; 82570; 83036

== ENCOUNTER 2024-06-04 14:46 | Outpatient (AMB) | payer OTHER, SELFPAY ==
--- NOTE | 2024-06-04 14:53 | MHC.PC.OV ---
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 Modeler Required: No Accompanied by: Self / Same As Patient Allergies Penicillins Allergy (Intermediate, Verified 06/04/24 15:14) Anaphylaxis Medication List - Last Reconciled 06/04/24 by Miranda Trejo MD aspirin 81 mg PO DAILY blood sugar diagnostic test twice a day cholecalciferol (vitamin D3) 50 mcg PO DAILY 90 days empagliflozin (Jardiance) 10 mg PO DAILY 90 days glipizide 5 mg PO BID 90 days lisinopril 10 mg PO DAILY 90 days metformin 1,000 mg (2 x 500 mg) PO BID 90 days semaglutide (Ozempic) 0.5 mg (0.736 mL) subcut QWEEK 4 weeks simvastatin 20 mg PO BEDTIME Tobacco use date assessed: 01/30/24 Dental Screening Dental Screen Date: 06/04/24 Did you have a dental visit in the last 12 months?: Yes Did you have a dental problem in the last 6 months where you did not have access to dental care?: No Was dental information given to patient?: Patient has dentist HPI HPI Comments History of Present Illness Details This is a 58-year-old female with diabetes mellitus type 2, hypertension, dyslipidemia and low vitamin-D that comes today for follow-up on her conditions. A1c has markedly improved and I will increase Ozempic to 1 mg. Blood pressure stable. LDL within goal. Vitamin-D levels are still pending. She does have sinus tenderness for over a week and I will prescribe antibiotics. [facility] Medical History (Updated 06/04/24 @ 19:26 by Miranda Trejo MD) Morbid obesity Diabetes HTN (hypertension) Surgical History H/O: hysterectomy History of hysterectomy History of tubal ligation Family History Father Dementia Lung cancer Skin cancer Mother Hypertension Social History (Updated 06/04/24 @ 15:19 by Miranda Trejo MD) Housing: House Alcohol intake: never Patient Tobacco Use Status: Former Tobacco user Tobacco use type: Cigarette Cigarette Packs Per Day: 0.5 Cigarettes Per Day: 10 e-Cigarette/Vaping Use: Former Use Second Hand Smoke Exposure: Yes service: Yes Current occupational status: employed 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 How often do you have six or more drinks on one occasion?: Never Total Score: 0 GARRY-7 AMB Questionnaire GARRY-7 Date GARRY - 7 assessed: 02/18/24 Source: Developed by Drs. Gilbert Dumont, Supriya Cifuentes, Abilio Moffett and colleagues, with an educational brielle from [employer]. Review of Systems Const All systems reviewed & are unremarkable except as noted in HPI and below Card Denies chest pain at rest, Denies chest pain with activity, Denies edema, Denies irregular heart rhythm, Denies claudication, Denies dyspnea, Denies dyspnea on exertion, Denies orthopnea, Denies paroxysmal nocturnal dyspnea and Denies slow heart rate Resp Denies cough, Denies dyspnea and Denies dyspnea on exertion GI Denies abdominal pain, Denies change in bowel habits, Denies excessive flatus, Denies nausea and Denies vomiting Physical exam (Primary Care) Vital Signs: Last Vital Signs BP 132/68 06/04/24 14:56 BMI result Body Mass Index 39.5 BMI Assessment/Plan discussion: High BMI High, discussed plan: lifestyle, weight reduction, dietary and physical activity Tobacco/Smoking Status: Tobacco use Status Tobacco use date assessed 01/30/24 06/04/24 14:55 Patient Tobacco Use Status Former Tobacco user 06/04/24 15:19 Tobacco use type Cigarette 06/04/24 15:19 e-Cigarette/Vaping Use Former Use 06/04/24 15:19 Thrive Assessment: Date of Thrive Assessment Date Thrive assessed 02/18/24 06/04/24 14:55 Resp Effort & Inspection: normal respiratory effort Auscultation: clear to auscultation bilaterally Cardio Jugular venous distension: no JVD Rate: regular rate Rhythm: regular rhythm Heart sounds: S1 normal heart sound present and S2 normal heart sound present Extrem General: Yes full ROM Results AMB Hemoglobin A1c AMB Hemoglobin A1c 7.8 % Last Edit by SHANT Hare on 06/04/24 15:04 Results Reviewed Results Reviewed: Laboratory Last Values Hgb A1c (Clinic) 7.8 % (4.0-6.0) H 06/04/24 14:53 Assessment and Plan Assessment & Plan (1) Diabetes mellitus: Code(s): E11.9 - Type 2 diabetes mellitus without complications Qualifiers: Diabetes mellitus type: type 2 Diabetes mellitus 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 Increase Ozempic to 1 mg. Continue glipizide and metformin. A1c goal is less than 7%. (2) Essential hypertension: Code(s): I10 - Essential (primary) hypertension Plan: Continue lisinopril. Blood pressure goal is equal or less than 130/80. (3) Dyslipidemia: Code(s): E78.5 - Hyperlipidemia, unspecified Plan: Continue statins. LDL goal is less than 70. (4) Hypovitaminosis D: Code(s): E55.9 - Vitamin D deficiency, unspecified Plan: Continue vitamin-D supplements. Orders: Orders AMB Hemoglobin A1c Today E11.65 - Type 2 diabetes mellitus with hyperglycemia Microalbumin, Random (w Creat) 4 Months R80.9 - Proteinuria, unspecified Lipid Panel 4 Months E78.5 - Hyperlipidemia, unspecified Comprehensive [place]. Panel Fast 4 Months E11.65 - Type 2 diabetes mellitus with hyperglycemia Medications: New semaglutide (Ozempic) 1 mg (0.75 mL) subcut QWEEK 4 weeks 3 mL 0RF doxycycline hyclate 100 mg PO BID 5 days 10 caps 0RF Discontinued semaglutide (Ozempic) Discontinued Reason: Patient Completed Course 0.5 mg (0.736 mL) subcut QWEEK 4 weeks 2.944 mL 0RF Coding Level of Care Code Est Pt Level 4 (60566) Complex EM visit Add On G2211 Diagnoses Type 2 diabetes mellitus with hyperglycemia, without long-term current use of insulin E11.65 Diabetes mellitus type: type 2 Diabetes mellitus senior care insulin use: without local company intermodal 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
[2024-06-04 14:56] VITALS: BP 132/68; BMI 39.5
== END 2024-06-04 15:24 | disposition home or self-care (01) ==
PROVIDERS: PCP Internal Medicine; Visit Provider Internal Medicine
DX: E11.65 Type 2 diabetes mellitus with hyperglycemia (principal); I10 Essential (primary) hypertension; E78.5 Hyperlipidemia, unspecified; E55.9 Vitamin D deficiency, unspecified

== ENCOUNTER 2024-10-07 15:06 | Outpatient (AMB) | payer OTHER, SELFPAY ==
--- NOTE | 2024-10-07 15:14 | MHC.PC.OV ---
Vital Signs 10/07/24 15:16 Height 5 ft 3 in Weight 225 lb BMI 39.9 BP 160/72 H Blood Pressure Location Lt brachial Position Sitting Intake Visit Reasons: dm Intake Note: Patient here for a follow up DM Shipwright Helper Required: No Accompanied by: Self / Same As Patient Allergies Penicillins Allergy (Intermediate, Verified 10/07/24 15:30) Anaphylaxis Medication List - Last Reconciled 10/07/24 by Miranda Trejo MD aspirin 81 mg PO DAILY blood sugar diagnostic test twice a day cholecalciferol (vitamin D3) 50 mcg PO DAILY 90 days empagliflozin (Jardiance) 10 mg PO DAILY 90 days glipizide 5 mg PO BID 90 days lisinopril 10 mg PO DAILY 90 days metformin 1,000 mg (2 x 500 mg) PO BID 90 days semaglutide (Ozempic) 2 mg (0.75 mL) subcut QWEEK 4 weeks simvastatin 20 mg PO BEDTIME Tobacco use date assessed: 10/07/24 Dental Screening Dental Screen Date: 10/07/24 Did you have a dental visit in the last 12 months?: Yes Did you have a dental problem in the last 6 months where you did not have access to dental care?: No Was dental information given to patient?: Patient has dentist HPI HPI Comments History of Present Illness Details The patient is a 59-year-old female presenting with follow-up for hypertension and type 2 diabetes management. Her medical history includes elevated blood pressure readings, and her last recorded A1c was 7.8% in May, which remains unchanged. She reports side effects of nausea due to her current medication regimen but tolerates it as intended. The patient's medication includes aspirin 81 mg, vitamin D, Jardiance 10 mg (recently increased to 25 mg), glipizide 5 mg twice daily, lisinopril 10 mg daily, metformin 1000 mg twice daily, and Ozempic 2 mg weekly. She has been taking the Ozempic 2 mg for three weeks. Despite treatment, she reports frustration regarding stable weight despite efforts and weight fluctuations by four to five pounds. She ceased smoking and does not consume alcohol. Dietary habits include consuming fruits like grapes, with recent recommendations to limit fruit intake due to sugar content, favoring protein-based sustenance. Weight management strategies include consideration of dietary choices and portion control. She has taken steps to lower calorie intake and plans to exercise on a stationary bicycle at home. She has hyperlipidemia morbid obesity [facility] Medical History (Updated 10/07/24 @ 15:49 by Miranda Trejo MD) Morbid obesity Diabetes HTN (hypertension) Surgical History H/O: hysterectomy History of hysterectomy History of tubal ligation Family History Father Dementia Lung cancer Skin cancer Mother Hypertension Social History Housing: House Alcohol intake: never Patient Tobacco Use Status: Former Tobacco user Tobacco use type: Cigarette Cigarette Packs Per Day: 0.5 Cigarettes Per Day: 10 e-Cigarette/Vaping Use: Former Use Second Hand Smoke Exposure: Yes service: Yes Current occupational status: employed 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 1. Little interest or pleasure in doing things: not at all 2. Feeling down, depressed, or hopeless: not at all 3. Trouble falling or staying asleep, or sleeping too much: not at all 4. Feeling tired or having little energy: not at all 5. Poor appetite or overeating: not at all 6. Feeling bad about yourself - or that you are a failure or have let yourself or your family down: not at all 7. Trouble concentrating on things, such as reading the newspaper or watching television: not at all 8. Moving or speaking so slowly that other people could have noticed. Or the opposite - being so fidgety or restless that you have been moving around a lot more than usual: not at all 9. Thoughts that you would be better off or of hurting yourself in some way: not at all Total score: 0 Depression Screening Interpretation: Negative Depression Screening Done: Yes 01328 - PHQ-9 Billing: Yes Source: Developed by Drs. Gilbert Dumont, Supriya B.W. Abilio Cifuentes and colleagues, with an educational brielle from [employer]. Thrive Questionnaire Date Thrive assessed: 10/07/24 I am a: Patient What is your living situation today?: I have a steady place to live Within the past 12 months, did the food you bought not last and you didn't have the money to get more?: Never true Within the past 12 months, did you worry whether your food would run out before you got money to buy more?: Never true Do you have trouble paying for medicines?: No Do you have trouble getting transportation to medical appointments?: No Do you have trouble paying your heating and electricity bill?: No Do you have trouble taking care of your child, family member or friend?: No Do you have trouble with day-to-day activities such as bathing, preparing meals, shopping, managing finances, etc.?: No Are you currently unemployed and looking for a job?: No Are you interested in more education?: No Please select the resources that you would like help with: None Currently or been in a relationship where the following occur: No concerns reported THRIVE Score: 0 AUDIT C Alcohol Use Questionnaire (AUDIT-C) 1. How often do you have a drink containing alcohol?: Never Total Score: 0 Score Reviewed/Action Taken: No GARRY-7 AMB Questionnaire GARRY-7 Date GARRY - 7 assessed: 02/18/24 Feeling nervous, anxious, or on edge: 0 = Not at all Not being able to stop or control worryin = Not at all Worrying too much about different things: 0 = Not at all Trouble relaxin = Not at all Being so restless that it is hard to sit still: 0 = Not at all Becoming easily annoyed or irritable: 0 = Not at all Feeling afraid as if something awful might happen: 0 = Not at all Total GARRY-7 score (0-4 normal; 5-9 mild; 10-14 moderate; 15-21 severe): 0 Source: Developed by Drs. Gilbert Dumont, Abilio Crum and colleagues, with an educational brielle from [employer]. GARRY-7 Assessment Billing GARRY-7 Assessment Tool: GARRY-7 Assessment 87230 Review of Systems Const All systems reviewed & are unremarkable except as noted in HPI and below Card Denies chest pain at rest, Denies chest pain with activity, Denies edema, Denies irregular heart rhythm, Denies claudication, Denies dyspnea, Denies dyspnea on exertion, Denies orthopnea, Denies paroxysmal nocturnal dyspnea and Denies slow heart rate Resp Denies cough, Denies dyspnea and Denies dyspnea on exertion GI Denies abdominal pain, Denies change in bowel habits, Denies excessive flatus, Denies nausea and Denies vomiting Physical exam (Primary Care) Vital Signs: Last Vital Signs BP 160/72 H 10/07/24 15:16 BMI result Body Mass Index 39.9 BMI Assessment/Plan discussion: High BMI High, discussed plan: lifestyle, weight reduction, dietary and physical activity Tobacco/Smoking Status: Tobacco use Status Tobacco use date assessed 10/07/24 10/07/24 15:23 Patient Tobacco Use Status Former Tobacco user 10/07/24 15:23 Tobacco use type Cigarette 10/07/24 15:23 e-Cigarette/Vaping Use Former Use 10/07/24 15:23 PHQ-9: PHQ-9 Score PHQ-9: Total score 0 10/07/24 15:29 Depression Screening Interpretation: Negative Thrive Assessment: Date of Thrive Assessment Date Thrive assessed 10/07/24 10/07/24 15:23 Currently or been in a relationship where the following occur: No concerns reported Resp Effort & Inspection: normal respiratory effort Auscultation: clear to auscultation bilaterally Cardio Jugular venous distension: no JVD Rate: regular rate Rhythm: regular rhythm Heart sounds: S1 normal heart sound present and S2 normal heart sound present Extrem General: Yes full ROM Office Procedures Flu Questionnaire Does the patient have a severe egg allergy?: No Results AMB Hemoglobin A1c AMB Hemoglobin A1c 7.8 % Last Edit by SHANT Hare on 10/07/24 15:29 Immunizations Fluarix Triv [id number] (PF) 45 mcg (15 mcg x 3)/0.5 mL IM syringe Performing Provider: Miranda Trejo MD [place] [facility] [facility] [place] [facility] Documented (not given) by: SHANT Hare on 10/07/24 15:24 Reason Not Given: Patient Refused Results Reviewed Results Reviewed: Laboratory Last Values Hgb A1c (Clinic) 7.8 % (4.0-6.0) H 10/07/24 15:13 Coding Level of Care Code Est Pt Level 4 (47239) Complex EM visit Add On G2211 Diagnoses Type 2 diabetes mellitus with hyperglycemia, without long-term current use of insulin E11.65 Diabetes mellitus type: type 2 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: without marine oil terminal superintendent use Diabetes mellitus complication status: with hyperglycemia Essential hypertension I10 Pure hypercholesterolemia E78.00 Hyperlipidemia type: pure hypercholesterolemia Morbid obesity E66.01 Additional Codes PHQ-9 - 01636 - PHQ-9 Billing: Yes ([id number]) GARRY-7 Assessment Billing - GARRY-7 Assessment Tool: GARRY-7 Assessment 54940 ([id number]) Time Spent (min) 23 Assessment & Plan Assessment & Plan (1) Diabetes mellitus: Code(s): E11.9 - Type 2 diabetes mellitus without complications Category: Medical Qualifiers: Diabetes mellitus type: type 2 Diabetes mellitus penitentiary insulin use: without marine oil terminal superintendent use Diabetes mellitus complication status: with hyperglycemia Qualified Code(s): E11.65 - Type 2 diabetes mellitus with hyperglycemia (2) Essential hypertension: Code(s): I10 - Essential (primary) hypertension Category: Medical (3) Hyperlipidemia: Code(s): E78.5 - Hyperlipidemia, unspecified Category: Medical Qualifiers: Hyperlipidemia type: pure hypercholesterolemia Qualified Code(s): E78.00 - Pure hypercholesterolemia, unspecified (4) Morbid obesity: Code(s): E66.01 - Morbid (severe) obesity due to excess calories Category: Medical Plan - Increase Jardiance to 25 mg from 10 mg) for better diabetes control. - Monitor blood pressure at home and return for re-evaluation in three weeks. - Recommended referral to endocrinology for additional weight and diabetes management support. - Reinforce dietary modifications to simplify carbohydrate intake, suggest protein shakes or bars for breakfast. Patient was informed and verbally consented to the use of an ambient scribe for clinic note documentation during this visit. I discussed current management plans including medication adjustments with the patient. An increase in Jardiance is recommended, and I strongly advised monitoring her blood pressure to assess medication efficacy, suggesting a follow-up appointment in four months. We explored lifestyle modifications, particularly focusing on calorie restrictions and exercise routines, advocating for small regular meals and protein intake spread throughout the day. I proposed referring her to endocrinology for specialized care in weight management and diabetes control, and she agreed to the referral. I emphasized using portion control and reduced carbohydrate consumption. We discussed possible adjustments to lisinopril based on upcoming blood pressure assessments. I encouraged consistent use of her exercise bike for cardiovascular benefit and weight management. Orders: Orders AMB Hemoglobin A1c Today E11.65 - Type 2 diabetes mellitus with hyperglycemia Influenza [id number] Immunization Today Z23 - Encounter for immunization Lipid Panel 4 Months E78.5 - Hyperlipidemia, unspecified Comprehensive [place]. Panel Fast 4 Months E11.65 - Type 2 diabetes mellitus with hyperglycemia Microalbumin, Random (w Creat) 4 Months R80.9 - Proteinuria, unspecified Referrals Endocrinology Referral E11.65 - Type 2 diabetes mellitus with hyperglycemia Medications: New empagliflozin (Jardiance) 25 mg PO DAILY 90 days 90 tabs 1RF Discontinued empagliflozin (Jardiance) Discontinued Reason: Patient Completed Course 10 mg PO DAILY 90 days 90 tabs 1RF Patient Instructions: - Start using Jardiance 25 mg daily. - Check blood pressure regularly and note any elevations. - Schedule and attend a follow-up appointment in three weeks and further appointment in four months. - Implement dietary adjustments by incorporating protein shakes and bars, avoiding fruits and high-carbohydrate foods. - Regularly perform exercise on a stationary bike at home for at least 30 minutes, five days a week. - Follow up with endocrinology for continued comprehensive diabetes and weight management. - Monitor for any side effects, and report any concerns immediately.
[2024-10-07 15:16] VITALS: BP 160/72; BMI 39.9
== END 2024-10-07 15:47 | disposition home or self-care (01) ==
PROVIDERS: PCP Internal Medicine; Visit Provider Internal Medicine
DX: E11.65 Type 2 diabetes mellitus with hyperglycemia (principal); I10 Essential (primary) hypertension; E66.01 Morbid (severe) obesity due to excess calories; Z68.39 Body mass index [BMI] 39.0-39.9, adult; E78.00 Pure hypercholesterolemia, unspecified

== ENCOUNTER → 2024-10-07 15:06 | Outpatient (BNVA) | payer OTHER, SELFPAY | PROVIDERS: PCP Internal Medicine; Visit Provider Internal Medicine | DX: E11.65 Type 2 diabetes mellitus with hyperglycemia (principal); I10 Essential (primary) hypertension; E78.00 Pure hypercholesterolemia, unspecified; E66.01 Morbid (severe) obesity due to excess calories; Z68.39 Body mass index [BMI] 39.0-39.9, adult; Z28.21 Immunization not carried out because of patient refusal | CPT/HCPCS: 83036; 96127 ==

== ENCOUNTER 2024-10-17 07:52 | Outpatient (AMB) | payer OTHER, SELFPAY ==
--- NOTE | 2024-10-17 07:53 | MHC.OFFVIS ---
Vital Signs 10/17/24 07:54 Height 5 ft 3 in Weight 224 lb 6.889 oz BMI 39.8 BP 122/78 Blood Pressure Location Lt brachial Position Sitting Pulse 71 Pulse Source Pulse Oximeter Intake Visit Reasons: Type 2 diabetes mellitus with hyperglycemia Intake Note: Patient present today for Type 2 Diabetes Mellitus Last Diabetic eye exam: Over 1 year ago but has upcoming appt in December Last Podiatry Visit: Doesn't have one Random Glucose: 110 mg/dl HgA1C: 7.8% 10/07/24 Undercover Cop Required: No Accompanied by: Self / Same As Patient Allergies Penicillins Allergy (Intermediate, Verified 10/17/24 07:58) Anaphylaxis Medication List - Last Reconciled 10/17/24 by Arlet Mendez PA-C aspirin 81 mg PO DAILY blood sugar diagnostic test twice a day cholecalciferol (vitamin D3) 50 mcg PO DAILY 90 days empagliflozin (Jardiance) 25 mg PO DAILY 90 days glipizide 5 mg PO BID 90 days lisinopril 10 mg PO DAILY 90 days metformin 1,000 mg (2 x 500 mg) PO BID 90 days simvastatin 20 mg PO BEDTIME tirzepatide (Mounjaro) 2.5 mg (0.5 mL) subcut QWEEK HPI HPI Type 2 diabetes mellitus with hyperglycemia: Details: Patient is a 59-year-old female with a significant past medical history lipidemia hypertension and type 2 diabetes presenting today for a consult regarding her diabetes. Endo: Dm: She states that she was diagnosed with diabetes around the age of 45. She is compliant with Ozempic 2 mg weekly, metformin 1000 mg twice a day, glipizide 5 mg twice a day and Jardiance 25 mg daily. She states she recently was told to increase the jardiance but has not yet. She is still on 10 mg. She also is not tolerating the higher dose of ozempic. She has had n/v despite watching her diet. She is also not impressed with the lack of weight loss. She has tried trulicity but had nausea and elevated blood sugars. She is trying to pick healthier options for eating but upon review with her does appear to eat a lot of carbohydrates. Reports having diabetic education in the past at [facility] but does not have a clear understanding of the difference between type 1 and type 2 diabetes or diabetes general. She does try read about this. No fam hx of dm CV: Blood pressure today in the office is 122/78. She is on lisinopril 10 mg. Cholesterol is managed with simvastatin 20 mg. 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 Current occupational exposures/hazards: No Cognitive needs: No Hearing needs: No Vision needs: Yes (glasses) Female Reproductive History Menstrual Age of Menarche: 12 Physical Exam Vital Signs: Last Vital Signs Pulse 71 10/17/24 07:54 BP 122/78 10/17/24 07:54 BMI result Body Mass Index 39.8 Const Orientation/consciousness: patient oriented x3 Neck Neck: Yes no lymphadenopathy Thyroid: Thyroid normal Carotids: no bruits Resp Auscultation: clear to auscultation bilaterally Cardio Rate: regular rate Rhythm: regular rhythm Heart sounds: S1 normal heart sound present and S2 normal heart sound present Peripheral pulses: dorsalis pedis present Neuro General: patient oriented x3, gait normal and no focal motor deficits Extrem Other: Monofilament sensation intact bilaterally. Vibratory sensation intact bilaterally. Skin intact. General: Yes normal to inspection Results Reviewed Results Reviewed: Laboratory Last Values Glucose (Clinic) 110 mg/dL (60-115) 10/17/24 07:59 Laboratory Tests 06/04/24 06/04/24 10/07/24 08:20 14:53 15:13 Sodium 139 Potassium 4.8 Chloride 104 Carbon Dioxide 27 Anion Gap 13 BUN 17 H Creatinine 0.75 Estimated GFR > 60 Fasting Glucose 145 H Hgb A1c (Clinic) 7.8 H 7.8 H Calcium 9.8 Total Bilirubin 0.3 AST 33 H ALT 27 Alkaline Phosphatase 69 Triglycerides 84 Cholesterol 106 LDL Cholesterol, Calc 54 HDL Cholesterol 36 L 25-OH Vitamin D Total 32 Laboratory Tests 06/04/24 08:50 Urine Creatinine 71.42 Urine Microalbumin 22.0 Microalb/Creat Ratio 30.8 H Assessment & Plan Assessment & Plan (1) Uncontrolled diabetes mellitus with hyperglycemia: Code(s): E11.65 - Type 2 diabetes mellitus with hyperglycemia Category: Medical Qualifiers: Diabetes mellitus type: type 2 Qualified Code(s): E11.65 - Type 2 diabetes mellitus with hyperglycemia Plan: 75 minutes spent today in the office with patient reviewing the differences between type 1 and type 2 diabetes, the pathophysiology of diabetes. We have reviewed complications associated with diabetes including infections, amputations, kidney disease, blindness, heart disease, stroke etc.. We also discussed signs and symptoms of hyper and hypoglycemia that would require emergent medical treatment. We reviewed rule of 15s and how to correct low blood sugars. labs ordered today will switch from ozempic to mounjaro. discussed risks and benefits and adverse effects advised to take the increased dosage of jardiance continue metformin and glipizide cgm was given today to help monitor blood sugars closely and how her diet impacts these readings we spent extensive time discussing diet and increasing protein intake. right Morning Tec mary grace link provided for her today (2) Essential hypertension: Code(s): I10 - Essential (primary) hypertension Category: Medical Plan: continue current plan (3) Hyperlipidemia: Code(s): E78.5 - Hyperlipidemia, unspecified Category: Medical Qualifiers: Hyperlipidemia type: pure hypercholesterolemia Qualified Code(s): E78.00 - Pure hypercholesterolemia, unspecified Plan: will monitor. continue simvastatin. (4) Obesity (BMI 30-39.9): Code(s): E66.9 - Obesity, unspecified Category: Medical Plan: starting mounjaro right Morning Tec mary grace provided Orders: Orders Glutamic acid decarboxylase Ab Today E11.65 - Type 2 diabetes mellitus with hyperglycemia, E66.9 - Obesity, unspecified, E78.00 - Pure hypercholesterolemia, unspecified, I10 - Essential (primary) hypertension Comprehensive [place]. Panel Fast Today E11.65 - Type 2 diabetes mellitus with hyperglycemia, E66.9 - Obesity, unspecified, E78.00 - Pure hypercholesterolemia, unspecified, I10 - Essential (primary) hypertension C Peptide Today E11.65 - Type 2 diabetes mellitus with hyperglycemia, E66.9 - Obesity, unspecified, E78.00 - Pure hypercholesterolemia, unspecified, I10 - Essential (primary) hypertension Islet Cell Antibody Scrn/Titer Today E11.65 - Type 2 diabetes mellitus with hyperglycemia, E66.9 - Obesity, unspecified, E78.00 - Pure hypercholesterolemia, unspecified, I10 - Essential (primary) hypertension Medications: New tirzepatide (Mounjaro) 2.5 mg (0.5 mL) subcut QWEEK 2 mL 1RF Discontinued semaglutide (Ozempic) Discontinued Reason: Doctor's Order 2 mg (0.75 mL) subcut QWEEK 4 weeks 3 mL 0RF Coding Level of Care Code New Pt Level 5 (23729) Complex EM visit Add On G2211 Diagnoses Uncontrolled type 2 diabetes mellitus with hyperglycemia E11.65 Diabetes mellitus type: type 2 Essential hypertension I10 Pure hypercholesterolemia E78.00 Hyperlipidemia type: pure hypercholesterolemia Obesity (BMI 30-39.9) E66.9
[2024-10-17 07:54] VITALS: BP 122/78; PULSE 71; BMI 39.8
[2024-10-17 08:03] LABS: Glucose, Whole Blood 110 mg/dL (60-115)
== END 2024-10-17 09:02 | disposition home or self-care (01) ==
PROVIDERS: PCP Internal Medicine; Visit Provider Physician Assistant
DX: E11.65 Type 2 diabetes mellitus with hyperglycemia (principal); I10 Essential (primary) hypertension; E78.00 Pure hypercholesterolemia, unspecified; E66.9 Obesity, unspecified

== ENCOUNTER → 2024-10-17 07:52 | Outpatient (BNVA) | payer OTHER, SELFPAY | PROVIDERS: PCP Internal Medicine; Visit Provider Physician Assistant | DX: E11.65 Type 2 diabetes mellitus with hyperglycemia (principal); I10 Essential (primary) hypertension; E78.00 Pure hypercholesterolemia, unspecified; E66.9 Obesity, unspecified; Z68.39 Body mass index [BMI] 39.0-39.9, adult; Z79.899 Other long term (current) drug therapy | CPT/HCPCS: 82947 ==

== ENCOUNTER 2024-11-08 06:46 | Outpatient (REF) | payer OTHER, SELFPAY ==
[2024-11-08 12:00] LABS: Creatinine Urine 74.87 mg/dL; Microalbum/Creatinine Ratio Ur 34.7 ug/mg cr (<30)
[2024-11-08 12:01] LABS: Alanine Aminotransferase 24 U/L (0-31); Albumin Level 4.1 g/dL (3.5-5.0); Alkaline Phosphatase 56 U/L (39-117); Anion Gap 12 (12-20); Aspartate Amino Transferase 36 U/L (5-31); Bilirubin Total 0.6 mg/dL (0.0-1.0); Blood Urea Nitrogen 14 mg/dL (9-16); Calcium 9.7 mg/dL (8.4-10.2); Carbon Dioxide 26 mmol/L (22-29); Chloride 107 mmol/L (96-108); Cholesterol 105 mg/dL (<200); Estimated Glomerular Filt Rate > 60; Glucose Fasting 118 mg/dL (60-99); HDL Cholesterol 50 mg/dL (>40); LDL Cholesterol Calculated 37 mg/dL (<100); Potassium 4.7 mmol/L (3.3-5.1); Sodium 140 mmol/L (135-145); Triglycerides 92 mg/dL (<150)
[2024-11-10 18:19] LABS: C Peptide 5.14 ng/mL (0.80-3.85)
[2024-11-12 19:18] LABS: Glutamic acid decarboxylase Ab <5 IU/mL (<5)
[2024-11-14 23:19] LABS: Islet Cell Antibody Screen NEGATIVE (NEGATIVE)
== END 2024-11-08 06:47 | disposition home or self-care (01) ==
LOC: HO.HMGCLDS 06:46
PROVIDERS: PCP Internal Medicine; Visit Provider Physician Assistant
DX: E11.65 Type 2 diabetes mellitus with hyperglycemia (principal); E78.5 Hyperlipidemia, unspecified; R80.9 Proteinuria, unspecified; E78.00 Pure hypercholesterolemia, unspecified; I10 Essential (primary) hypertension; E66.9 Obesity, unspecified
CPT/HCPCS: 36415; 80053; 80061; 82043; 82570; 84681; 86341

== ENCOUNTER 2024-11-10 08:33 | Outpatient (AMB) | payer OTHER, SELFPAY ==
[2024-11-10 08:36] VITALS: BP 140/68; PULSE 70; O2SAT 99; BMI 39.6
--- NOTE | 2024-11-10 08:36 | A.OFFVIS_ITS ---
Vital Signs 11/10/24 08:36 Height 5 ft 3 in Weight 223 lb 12.307 oz BMI 39.6 BP 140/68 H Blood Pressure Location Lt brachial Position Sitting Pulse 70 Pulse Source Pulse Oximeter Pulse Oximetry (%) 99 Oxygen Delivery Method Room Air Intake Visit Reasons: T2DM w hyperglycemia Intake Note: Patient present today for Type 2 Diabetes Mellitus w hyperglycemia. Last Diabetic eye exam: 2022 Last Podiatry Visit: Doesn't have one Random Glucose: 115 mg/dl HgA1C: 7.8% 10/07/24 Take Down Sorter Required: No Accompanied by: Self / Same As Patient Allergies Penicillins Allergy (Intermediate, Verified 11/10/24 08:41) Anaphylaxis Medication List - Last Reconciled 11/10/24 by Arlet Mendez PA-C aspirin 81 mg PO DAILY blood sugar diagnostic test twice a day cholecalciferol (vitamin D3) 50 mcg PO DAILY 90 days empagliflozin (Jardiance) 25 mg PO DAILY 90 days glipizide 5 mg PO BID 90 days lisinopril 10 mg PO DAILY 90 days metformin 1,000 mg (2 x 500 mg) PO BID 90 days simvastatin 20 mg PO BEDTIME HPI HPI T2DM w hyperglycemia: Details: Patient is a 59-year-old female with a significant past medical history HDL, hypertension and type 2 diabetes presenting today for a consult regarding her diabetes. Endo: Dm: She states that she was diagnosed with diabetes around the age of 45. She is currently on mounjaro 2.5 mg weekly, metformin 1000 mg twice a day, glip izide 5 mg twice a day and Jardiance 25 mg daily. -She is still on 10 mg. She did not tolerate the higher dose of ozempic. She has had n/v despite watching her diet. She is also not impressed with the lack of weight loss. She has tried trulicity but had nausea and elevated blood sugars. She is trying to pick healthier options for eating but upon review with her does appear to eat a lot of carbohydrates. Reports having diabetic education in the past at [facility] but does not have a clear understanding of the difference between type 1 and type 2 diabetes or diabetes general. She does try read about this. No fam hx of dm CV: Blood pressure today in the office is 140/68. She is on lisinopril 10 mg. Cholesterol is managed with simvastatin 20 mg. GI: Reviewed last LFTs were elevated. They have been stable for years. No recent imaging. 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 Current occupational exposures/hazards: No Cognitive needs: No Hearing needs: No Vision needs: Yes (glasses) Female Reproductive History Menstrual Age of Menarche: 12 Physical Exam Const Orientation/consciousness: patient oriented x3 HEENT Ears: hearing grossly normal bilaterally Neck Thyroid: Thyroid normal Lymphatic: no lymphadenopathy noted Resp Auscultation: clear to auscultation bilaterally Cardio Rate: regular rate Rhythm: regular rhythm Heart sounds: S1 normal heart sound present and S2 normal heart sound present Skin General skin exam: no rashes or lesions noted Neuro General: patient oriented x3, gait normal and no focal motor deficits Results Reviewed Results Reviewed: Laboratory Tests 10/07/24 11/08/24 15:13 07:20 Sodium 140 Potassium 4.7 Chloride 107 Carbon Dioxide 26 Anion Gap 12 BUN 14 Creatinine 0.69 Estimated GFR > 60 Fasting Glucose 118 H Hgb A1c (Clinic) 7.8 H AST 36 H ALT 24 Alkaline Phosphatase 56 Total Protein 8.0 Albumin 4.1 Triglycerides 92 Cholesterol 105 LDL Cholesterol, Calc 37 HDL Cholesterol 50 Assessment & Plan Assessment & Plan (1) Uncontrolled diabetes mellitus with hyperglycemia: Code(s): E11.65 - Type 2 diabetes mellitus with hyperglycemia Category: Medical Qualifiers: Diabetes mellitus type: type 2 Qualified Code(s): E11.65 - Type 2 diabetes mellitus with hyperglycemia Plan: increase mounjaro to 5 mg continue jardiance 25 mg continue metformin and glipizide (2) Dyslipidemia: Code(s): E78.5 - Hyperlipidemia, unspecified Category: Medical Plan: Continue current regimen (3) Essential hypertension: Code(s): I10 - Essential (primary) hypertension Category: Medical Plan: WNL. Continue current regimen (4) Elevated LFTs: Code(s): R79.89 - Other specified abnormal findings of blood chemistry Category: Medical Plan: Labs and ultrasound ordered. We will follow up pending test results. We did discuss that often times uncontrolled diabetes can promote fatty liver and in some patients this can progress to cirrhosis Orders: Orders Liver Panel Today R94.5 - Abnormal results of liver function studies Hepatitis B Surface Antibody Today R94.5 - Abnormal results of liver function studies Hepatitis C Antibody Today R94.5 - Abnormal results of liver function studies Gamma Glutamyl Transpeptidase Today R94.5 - Abnormal results of liver function studies Ferritin Today R94.5 - Abnormal results of liver function studies US abdomen comp w elastography Today E11.65 - Type 2 diabetes mellitus with hyperglycemia, E66.01 - Morbid (severe) obesity due to excess calories, E78.5 - Hyperlipidemia, unspecified, R79.89 - Other specified abnormal findings of blood chemistry Medications: New tirzepatide (Mounjaro) 5 mg (0.5 mL) subcut QWEEK 2 mL 3RF Coding Level of Care Code Est Pt Level 4 (48282) Complex EM visit Add On G2211 Diagnoses Uncontrolled type 2 diabetes mellitus with hyperglycemia E11.65 Diabetes mellitus type: type 2 Dyslipidemia E78.5 Essential hypertension I10 Elevated LFTs R79.89
[2024-11-10 08:55] LABS: Glucose, Whole Blood 115 mg/dL (60-115)
== END 2024-11-10 08:58 | disposition home or self-care (01) ==
PROVIDERS: PCP Internal Medicine; Visit Provider Physician Assistant
DX: E11.65 Type 2 diabetes mellitus with hyperglycemia (principal); E78.5 Hyperlipidemia, unspecified; I10 Essential (primary) hypertension; R79.89 Other specified abnormal findings of blood chemistry

== ENCOUNTER → 2024-11-10 08:33 | Outpatient (BNVA) | payer OTHER, SELFPAY | PROVIDERS: PCP Internal Medicine; Visit Provider Physician Assistant | DX: E11.65 Type 2 diabetes mellitus with hyperglycemia (principal); E78.5 Hyperlipidemia, unspecified; I10 Essential (primary) hypertension; R79.89 Other specified abnormal findings of blood chemistry; Z79.84 Long term (current) use of oral hypoglycemic drugs; Z79.899 Other long term (current) drug therapy | CPT/HCPCS: 82947 ==

== ENCOUNTER 2024-12-11 07:40 | Outpatient (REF) | payer OTHER, SELFPAY ==
--- NOTE | ~2024-12-11 | US_ITS ---
EXAMINATION: US ABDOMEN COMPLETE WITH LIVER ELASTOGRAPHY HISTORY: R79.89 - Other specified abnormal findings of blood chemistry TECHNIQUE: Real-time grayscale ultrasound imaging of the abdomen was performed and images were reviewed. COMPARISON: There are no prior studies for comparison. FINDINGS: Liver: The right lobe of the liver measures 18.6 cm in size. The left lobe of the liver measures 12.8 cm in size. The liver demonstrates increased echotexture, consistent with steatosis. No focal mass or intrahepatic biliary ductal dilatation is identified. There is normal hepatopedal flow in the portal vein. Ultrasound elastography of the liver was performed with 10 separate measurements of the liver parenchyma with the patient in the supine position. Measurements could not be obtained 2 cm below Dariel's capsule and perpendicular to the capsule due to technical reasons. The median shear wave velocity is 1.66 m/s. The interquartile range/median (IQR/median) is 0.10. Gallbladder and biliary tree: The gallbladder is unremarkable, without evidence of calculi, wall thickening, or pericholecystic fluid. There is no sonographic Valverde sign. The common bile duct is normal in caliber measuring 5 mm. Kidneys: The right kidney measures 13.3 cm in length. The left kidney measures 12.5 cm in length. The kidneys are unremarkable, without evidence of masses, hydronephrosis, or calculi. Pancreas: The pancreatic head, neck, and body are unremarkable. The pancreatic tail is obscured by bowel gas. Spleen: The spleen is normal in size and contour, measuring 11.1 cm in length. Abdominal aorta and inferior vena cava: The visualized portions of the abdominal aorta and inferior vena cava are normal in caliber. There is no free fluid in the abdomen. US/US abdomen comp w elastography IMPRESSION: Hepatomegaly and hepatic steatosis. The median shear wave velocity in the liver is 1.66 m/s, corresponding to a median liver stiffness of 8.57 kPa. The IQR/median value is 0.10. This is indicative of a quality data set. Findings are indicative of a low elastography value which rules out advanced chronic liver disease in asymptomatic patients. REFERENCE: Society of Radiologists in Ultrasound Liver Stiffness Thresholds (2020): LIVER STIFFNESS THRESHOLDS: *Shear wave velocity less than 1.3 m/s (Liver Stiffness equal or less than 5 kPa): High probability of being normal. *Shear wave velocity less than 1.7 m/s (Liver Stiffness less than 9 kPa): In the absence of other known clinical signs, rules out compensated advanced chronic liver disease. *Shear wave velocity between 1.7-2.1 m/s (Liver Stiffness 9-13 kPa): Suggestive of compensated advanced chronic liver disease but need further test for confirmation. *Shear wave velocity between 2.1-2.4 m/s (Liver Stiffness 13-17 kPa): Rules in compensated advanced chronic liver disease. *Shear wave velocity greater than 2.4 m/s (Liver Stiffness over 17 kPa): Suggestive of clinically significant portal hypertension. QUALITY OF DATA SET: *IQR/Median value equal or less than 0.15 implies a quality data set. *IQR/Median value over 0.15 implies a poor quality data set. SIGNIFICANT CHANGE FROM PRIOR EXAM: Significant change if liver stiffness measurement is 10% or greater from prior exam. OTHER CONSIDERATIONS: The stage of liver fibrosis may be overestimated in the setting of acute hepatitis, liver inflammation, elevated liver function tests, hepatic vascular congestion, obstructive cholestasis, non-fasting state, and infiltrative diseases such as amyloidosis and lymphoma. In some patients with NAFLD, the liver stiffness thresholds for compensated advanced chronic liver disease may be lower. In causes other than viral hepatitis and NAFLD, liver stiffness thresholds are not well established. Electronically signed by: Gilbert Archer MD 12/11/2024 08:30 AM EDT
--- OUTSIDE RECORDS SUMMARY | 2024-12-11 07:43 | XMS_ITS | Encounter Summary ---
Author Organization [facility] Address [address] [place] [address] Care Team Providers Care Silicator Name Role Phone Minoo Hernández MD Primary Care Provider [facility] Pcp [facility] Encounter Details Date Type Department Care Team Description 12/13/2020 Orders Only Vascular Surgery - [address] [id number] Yesika Mack MD [address] [id number] Carotid occlusion, right Social History Tobacco Use Types Packs/Day Years Used Date Smoking Tobacco: Every Day Cigarettes 1 Smokeless Tobacco: Never Comments:started smoking at age 20 Alcohol Use Standard Drinks/Week Comments Yes 0 (1 standard drink = 0.6 oz pur e alcohol) Social. Occasional vodka Sex Assigned at Date Recorded Not on file COVID-19 Exposure Response Date Recorded In the last month, have you been in contact with someone who was confirmed or suspected to have Coronavirus / COVID-19? No / Unsure 12/16/2020 1:22 PM EDT documented as of this encounter Progress Notes * Yesika Mack MD - 12/22/2020 10:05 AM EDT Right ICA to essentially occluded. Recheck carotid ultrasound in 1 year. Results discussed with the patient on her visit. documented in this encounter Plan of Treatment Not on file documented as of this encounter Procedures Procedure Name Priority Date/Time Associated Diagnosis Comments CTA NECK W/WO CONTRAST-INCLU POST PROCESSING Routine 12/09/2020 Carotid occlusion, right documented in this encounter Results * CTA NECK W/WO CONTRAST-INCLU POST PROCESSING (12/09/2020) Yesika Mack MD CT SCANS documented in this encounter Visit Diagnoses Diagnosis Carotid occlusion, right Occlusion and stenosis of carotid artery without mention of cerebral infarction documented in this encounter Care Teams Silicator Relationship Specialty Start Date End Date Minoo Hernández MD PCP - General Internal Medicine 05/31/20 08/08/22 [facility], Pcp PCP - General Internal Medicine 08/09/22 documented as of this encounter
--- OUTSIDE RECORDS SUMMARY | 2024-12-11 07:43 | XMS_ITS | Encounter Summary ---
Author Organization [facility] Address [address] [place] [address] Care Team Providers Care Tai Chi Instructor Name Role Phone Minoo Hernández MD Primary Care Provider [facility] Pcp Primary Care Provider Unavailabl e Reason for Visit * Reason Comments E-prescribe Rx Request Encounter Details Date Type Department Care Team Description 12/20/2020 Refill Adult Medicine [address] [address] Minoo Hernández MD E-prescribe Rx Request Social History Tobacco Use Types Packs/Day Years [...] PM EDT documented as of this encounter Miscellaneous Notes * Telephone Encounter - Kira Diaz M.A. - 12/20/2020 1:25 PM EDT Lab Results Component Value Date HGBA1C 9.7 10/06/2020 MALBUR 288.0 10/07/2020 MALBCR 274.2 10/07/2020 CHOL 175 10/06/2020 LDL 93 10/06/2020 HDL 47 10/06/2020 TRIG 175 10/06/2020 GLU 89 11/18/2020 CREAT 0.60 11/18/2020 Pending appt 01/07/21 * Telephone Encounter - Keri Downey - 12/20/2020 11:26 AM EDT Patient would like script to be: E-PRESCRIBED/FAXED TO PHARMACY WHEN WAS THE PATIENT'S LAST APPOINTMENT IN ADULT MEDICINE? 10/07/2020 WHEN WAS THE LAST TIME THE PATIENT SAW THEIR PCP? Same as above Does patient have an upcoming appointment? Yes 01/07/2021 (THE MEDICATION REQUESTED IS ON THE MED LIST ABOVE) All of the medications requested were on the CURRENT MEDS list Did you check the Pharmacy information above?: YES Patient wants: 30 -day supply Is this a mail order prescription request ? NO If the refill is from a FAXED refill request what is the RX # listed on the fax? N/A Patients current insurance carrier is: Payor: [employer] / Plan: [address] $25 [id number] / Product Type: HMO [id number] documented in this encounter Plan of Treatment Not on file documented as of this encounter Visit Diagnoses Not on filedocumented in this encounter Care Teams Tai Chi Instructor Relationship Specialty Start Date End Date Minoo Hernández MD PCP - General Internal Medicine 05/31/20 08/08/22 [facility], Pcp PCP - General Internal Medicine 08/09/22 documented as of this encounter
--- OUTSIDE RECORDS SUMMARY | 2024-12-11 07:43 | XMS_ITS | Encounter Summary ---
Author Organization [facility] Address [address] [place] [address] Care Team Providers Care Mortuary Operations Manager Name Role Phone Tucker Coburn MD Primary Care Provider Unavail able Minoo Hernández MD Primary Care Provider Unavail [facility], Pcp Primary Care Provider Unavailabl e Encounter Details Date Type Department Care Team Description 05/05/2020 Refill Adult Medicine [address] [address] Ellen Love PA-C Social History Tobacco Use Types Packs/Day Years Used Date Smoking Tobacco: Every Day Cigarettes 1 Smokeless Tobacco: Never Comments:started smoking at age 20 Alcohol Use Standard Drinks/Week Comments Yes 0 (1 standard drink = 0.6 oz pur e alcohol) Social. Occasional vodka Sex Assigned at Date Recorded Not on file documented as of this encounter Miscellaneous Notes * Telephone Encounter - Evelin Herrera - 05/05/2020 11:21 AM EDT Last office visit 03/01/20 Next office visit 06/01/20 Lab Results Component Value Date HGBA1C 9.8 02/12/2020 MALBUR 140.0 02/12/2020 MALBCR 90.3 02/12/2020 CHOL 114 02/12/2020 LDL 44 02/12/2020 HDL 46 02/12/2020 TRIG 120 02/12/2020 GLU 107 03/01/2020 CREAT 0.58 03/01/2020 Lab Results Component Value Date CHOL 114 02/12/2020 LDL 44 02/12/2020 HDL 46 02/12/2020 TRIG 120 02/12/2020 SGOT 18 02/12/2020 SGPT 20 02/12/2020 documented in this encounter Plan of Treatment Not on file documented as of this encounter Visit Diagnoses Diagnosis Type 2 diabetes mellitus with complication, without long-term current use of insulin (HCC) Hypercholesteremia Pure hypercholesterolemia documented in this encounter Care Teams Mortuary Operations Manager Relationship Specialty Start Date End Date Tucker Coburn MD PCP - General Internal Medicine 03/23/15 05/30/20 Minoo Hernández MD PCP - General Internal Medicine 05/31/20 08/08/22 [facility], Pcp PCP - General Internal Medicine 08/09/22 documented as of this encounter
--- OUTSIDE RECORDS SUMMARY | 2024-12-11 07:43 | XMS_ITS | Encounter Summary ---
Author Organization [facility] Address [address] [place] [address] Care Team Providers Care Pasteurizer Helper Name Role Phone Tucker Coburn MD Primary Care Provider Unavail able Minoo Hernández MD Primary Care Provider Unavail able [facility], Pcp Primary Care Provider Unavailabl e Encounter Details Date Type Department Care Team Description 06/11/2018 Vascular Ultrasound Technologist Report Medical Records [address] [place] [address] [facility] Diabetes Education [address] [place] [address] Social History Tobacco Use Types Packs/Day Years Used Date Smoking Tobacco: Every Day Cigarettes 0.8 Smokeless Tobacco: Never Comments:started smoking at age 20 Alcohol Use Standard Drinks/Week Comments Yes 0 (1 standard drink = 0.6 oz pur e alcohol) Social. Occasional vodka Sex Assigned at Date Recorded Not on file documented as of this encounter Plan of Treatment Not on file documented as of this encounter Visit Diagnoses Not on filedocumented in this encounter Care Teams Pasteurizer Helper Relationship Specialty Start Date End Date Tucker Coburn MD PCP - General Internal Medicine 03/23/15 05/30/20 Minoo Hernández MD PCP - General Internal Medicine 05/31/20 08/08/22 [facility], Pcp PCP - General Internal Medicine 08/09/22 documented as of this encounter
--- OUTSIDE RECORDS SUMMARY | 2024-12-11 07:43 | XMS_ITS | Encounter Summary ---
Author Organization [facility] Address [address] [place] [address] Care Team Providers Care Learning And Development Analyst Name Role Phone Minoo Hernández MD Primary Care Provider [facility] Pcp Primary Care Provider Unavailabl e Reason for Visit * Reason Comments E-prescribe Rx Request Encounter Details Date Type Department Care Team Description 04/11/2022 Refill Adult Medicine [address] [address] Sudha Couch NP E-prescribe Rx Request Social History Tobacco Use [...] encounter Miscellaneous Notes * Telephone Encounter - Kalin Brown - 05/03/2022 12:01 PM EDT Spoke to pt this afternoon, pt states she has left [facility] and is receiving care at another location. * Telephone Encounter - Judith Thao PA-C - 04/19/2022 2:55 PM EDT Please contact patien to choose a new PCP and set up an appt with new care team provider MAHAMED. Resend as needed. Thanks. * Telephone Encounter - Esme Paredes M.A. - 04/19/2022 2:49 PM EDT Last office visit 07/18/21 Pt needs to choose a new PCP and schedule an appt (letter mailed) Lab Results Component Value Date HGBA1C 7.5 07/19/2021 MALBUR 288.0 10/07/2020 MALBCR 274.2 10/07/2020 CHOL 119 07/19/2021 LDL 52 07/19/2021 HDL 44 07/19/2021 TRIG 115 07/19/2021 GLU 132 07/19/2021 CREAT 0.57 07/19/2021 Lab Results Component Value Date NA 136 07/19/2021 K 4.6 07/19/2021 CO2 27 07/19/2021 CL 104 07/19/2021 BUN 12 07/19/2021 CREAT 0.57 07/19/2021 GLU 132 07/19/2021 CA 8.7 07/19/2021 GFR > 60 07/19/2021 * Telephone Encounter - Trista Haney - 04/19/2022 2:45 PM EDT L/m for pt update pcp and make future appt. 3rd attempt Letter mailed to patient * Telephone Encounter - Trista Haney - 04/17/2022 9:29 AM EDT L/m for pt update pcp and make future appt. 2nd attempt * Telephone Encounter - Trista Haney - 04/12/2022 12:05 PM EDT L/m for pt update pcp and make future appt. documented in this encounter Plan of Treatment Not on file documented as of this encounter Visit Diagnoses Diagnosis Type 2 diabetes mellitus with complication, without long-term current use of insulin (HCC) documented in this encounter Care Teams Learning And Development Analyst Relationship Specialty Start Date End Date Minoo Hernández MD PCP - General Internal Medicine 05/31/20 08/08/22 [facility], Pcp PCP - General Internal Medicine 08/09/22 documented as of this encounter
--- OUTSIDE RECORDS SUMMARY | 2024-12-11 07:43 | XMS_ITS | Encounter Summary ---
Author Organization [facility] Address [address] [place] [address] Care Team Providers Care Director Distribution Name Role Phone Tucker Coburn MD Primary Care Provider Unavail able Minoo Hernández MD Primary Care Provider Unavail [facility], Pcp Primary Care Provider Unavailabl e Reason for Visit * Reason Onset Date Comments My Chart Appointment 12/04/2017 Encounter Details Date Type Department Care Team Description 12/04/2017 [place] [address] [facility] [address] [place] [address] My Chart Appointment Social History Tobacco Use Types Packs/Day Years Used Date Smoking Tobacco: Every Day Cigarettes 0.8 Smokeless Tobacco: Never Comments:started smoking at age 20 Alcohol Use Standard Drinks/Week Comments Yes 0 (1 standard drink = 0.6 oz pur e alcohol) Social. Occasional vodka Sex Assigned at Date Recorded Not on file documented as of this encounter Miscellaneous Notes * Telephone Encounter - Roscoe Shipley R.N - 12/04/2017 4:05 PM EDT [phone] (home) Pt called left voice message to return call. * Telephone Encounter - Tiffany Haney - 12/04/2017 1:21 PM EDT Patient has scheduled a visit through My Chart. Please call patient to triage for appropriateness. Date appointment is booked: 12/05/17 Appointment scheduled with ANNETTA WELLER Reason for appointment: some kind of virus - upset stomach, running slight fever (had diarrhea and stomach cramping all weekend) documented in this encounter Plan of Treatment Not on file documented as of this encounter Visit Diagnoses Not on filedocumented in this encounter Care Teams Director Distribution Relationship Specialty Start Date End Date Tucker Coburn MD PCP - General Internal Medicine 03/23/15 05/30/20 Minoo Hernández MD PCP - General Internal Medicine 05/31/20 08/08/22 [facility], Pcp PCP - General Internal Medicine 08/09/22 documented as of this encounter
--- OUTSIDE RECORDS SUMMARY | 2024-12-11 07:43 | XMS_ITS | Encounter Summary ---
Author Organization [facility] Address [address] [place] [address] Care Team Providers Care Computer Engineer Name Role Phone Minoo Hernández MD Primary Care Provider [facility], Pcp Primary Care Provider Unavailabl e Reason for Referral * Non TAMMY (Urgent) - Authorized/Booked Specialty Diagnoses / Procedures Referred By Contac t Referred To Contact Vascular Surgery Procedures REFERRAL TO VASCULAR SURGERY (IN NETWORK) Minoo Hernández MD [address] [place] [phone] Yesika Mack MD [address] [facility] [address] [place] [phone] Referral ID Status Reason Start Date Expiration Date V isits Requested Visits Authorized [id number] Authorized/ Booked 11/12/2020 11/12/2021 12 12 Encounter Details Date Type Department Care Team Description 11/12/2020 Orders Only Adult Medicine [address] [id number] Minoo Hernández MD Social History Tobacco Use Types Packs/Day Years [...] on filedocumented in this encounter Care Teams Computer Engineer Relationship Specialty Start Date End Date Minoo Hernández MD PCP - General Internal Medicine 05/31/20 08/08/22 [facility], Pcp PCP - General Internal Medicine 08/09/22 documented as of this encounter
--- OUTSIDE RECORDS SUMMARY | 2024-12-11 07:43 | XMS_ITS | Encounter Summary ---
Author Organization [facility] Address [address] [place] [address] Care Team Providers Care Land Lease Information Clerk Name Role Phone Tucker Coburn MD Primary Care Provider Unavail able Minoo Hernández MD Primary Care Provider Unavail able [facility], Pcp Primary Care Provider Unavailabl e Encounter Details Date Type Department Care Team Description 10/01/2018 Manager International Report Medical Records [address] [place] [address] Rand Borges [address] [place] [address] Social History Tobacco Use Types Packs/Day Years [...] on filedocumented in this encounter Care Teams Land Lease Information Clerk Relationship Specialty Start Date End Date Tucker oCburn MD PCP - General Internal Medicine 03/23/15 05/30/20 Minoo Hernández MD PCP - General Internal Medicine 05/31/20 08/08/22 [facility], Pcp PCP - General Internal Medicine 08/09/22 documented as of this encounter
--- OUTSIDE RECORDS SUMMARY | 2024-12-11 07:44 | XMS_ITS | Clinical Summary ---
Author Organization [facility] Address [address] [place] [address] Care Team Providers Care Shaper Machine Hand Name Role Phone [facility], Pcp Primary Care Provider Unavailabl e Allergies Active Allergy Reactions Severity Noted Date Comments Penicillins SOB, Wheezing High 05/29/2015 Throat closure. Medications Medication Sig Dispensed Refills Start Date End Date Status aspirin 81 MG EC tablet Take 81 mg by mouth daily. 0 Active metformin (GLUCOPHAGE) 500 MG tabletIndications:Ty pe 2 diabetes mellitus with complication, without long-term current use of insulin (HCC) TAKE 2 TABLETS BY MOUTH TWICE DAILY WITH MEALS 360 tablet 1 07/18/2021 Active lisinopril (PRINIVIL,ZESTRIL) 10 MG tablet Take 1 tablet by mouth daily. 90 tablet 1 07/18/2021 Active glipiZIDE (GLUCOTROL) 5 MG tablet TAKE 1/2 TABLET BY MOUTH TWICE DAILY BEFORE MEALS 90 tablet 1 07/18/2021 Active simvastatin (ZOCOR) 20 MG tabletIndications:Hy percholesteremia Take 1 tablet by mouth at bedtime. 90 tablet 1 07/18/2021 Active nicotine (NICODERM CQ) 21 MG/24HR Place 1 Patch onto the skin daily. 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 Overview: S/p Carotid artery ultrasound 10/2020, CT angio showed no occlusion normal caliber Essential hypertension 04/24/2017 Vitamin D deficiency 06/08/2015 COPD (chronic obstructive pulmonary dise ase) 06/08/2015 CTS (carpal tunnel syndrome) 06/08/2015 Hirsutism 06/08/2015 Cervicalgia 06/08/2015 BMI 40.0-44.9, adult 05/29/2015 Type 2 diabetes mellitus with neurologic al manifestations, uncontrolled 05/29/2015 Depression Goiter, nontoxic, multinodular Overview: Dominant right lobe nodule, biopsied (2011) and benign /no change in size and pt euthyroid as of 2012 Resolved Problems Problem Noted Date Resolved Date History of sinusitis, bacterial 05/29/2015 09/30/2020 Immunizations Name Administration Dates Next Due Influenza Vaccine-preservati ve Free-quadrivalent 4 Years 07/18/2021,10/07/2020 Family History Medical History Relation Name Comments Hypertension Father Relation Name Status Comments Father Social History Tobacco Use Types Packs/Day Years Used Date Smoking Tobacco: Every Day Cigarettes 1 Smokeless Tobacco: Never Comments:started smoking at age 20 Alcohol Use Standard Drinks/Week Comments Yes 0 (1 standard drink = 0.6 oz pur e alcohol) Social. Occasional vodka Sex Assigned at Date Recorded Not on file Last Filed Vital Signs Vital Sign Reading Time Taken Comments Blood Pressure 130/62 07/18/2021 9:54 AM EDT Pulse 102 07/18/2021 9:54 AM EDT Temperature 36.8 ??C (98.3 ??F) 07/18/2021 9:54 AM ED T Respiratory Rate 18 07/18/2021 9:54 AM EDT Oxygen Saturation 96% 07/18/2021 9:54 AM EDT Inhaled Oxygen Concentration - - Weight 102.1 kg (225 lb) 07/18/2021 9:54 AM EDT Height 160 cm (5' 3 ) 07/18/2021 9:54 AM EDT Body Mass Index 39.86 07/18/2021 9:54 AM EDT Plan of Treatment Health Maintenance Due Date Last Done Comments Covid-19 Vaccine (#1) 02/19/1966 HEPATITIS C SCREENING 1983 DTAP/TDAP/TD (1 - Tdap) 1984 CERVICAL CANCER SCREENING 1986 MAMMOGRAM 2005 SHINGLES VACCINE (1 of 2) 2015 BASELINE HEALTH EXAM 40-64 12/22/2017 12/23/2015 DIABETES: ANNUAL EYE EXAM 10/07/20212020 (External Completion) DIABETES: ANNUAL FOOT EXAM 10/07/202110/07 (Completed), 10/07/2020, 07/27/2017, Additional history exists DIABETES: ANNUAL URINE PROTE IN TEST (MICROALBUMIN) 10/07/2021 10/07/2020, 02/12/2020, 08/31/2017, Additional history exists DIABETES: BLOOD SUGAR CONTRO L TEST (HGBA1C) 10/19/2021 07/19/2021, 01/05/2021, 10/06/2020, Additional history exists DIABETES/HEART DISEASE: MARY CARMEN AL CHOLESTEROL (LDL) 07/19/2022 07/19/2021, 10/06/2020, 02/12/2020, Additional history exists INFLUENZA (#1) 2024 07/18/2021, 09/18, 10/07/2020, Additional history exists TOBACCO CHECK/ADVISE 07/10/2024 07/10/2022, 04/11/2022, 07/18/2021, Additional history exists BMI CHECK/ADVISE 09/17/2024 07/18/2021, , 01/07/2021, Additional history exists COLON CANCER SCREENING 02/07/2026 02/08/2016 PNEUMOCOCCAL VACCINE FOR HIG H RISK PATIENTS (#2) 2030 12/23/2015 (Refused) Care Teams Shaper Machine Hand Relationship Specialty Start Date End Date Community, Pcp PCP - General Internal Medicine 08/09/22
== END 2024-12-11 07:41 | disposition home or self-care (01) ==
LOC: HO.US 07:40
PROVIDERS: PCP Internal Medicine; Visit Provider Physician Assistant
DX: R79.89 Other specified abnormal findings of blood chemistry (principal); E66.01 Morbid (severe) obesity due to excess calories; E11.65 Type 2 diabetes mellitus with hyperglycemia; E78.5 Hyperlipidemia, unspecified
CPT/HCPCS: 76700; 76981

== ENCOUNTER → 2024-12-11 07:41 | Outpatient (BNV) | payer OTHER, SELFPAY | PROVIDERS: PCP Internal Medicine; Visit Provider Radiology Diagnostic Radiology | DX: R16.0 Hepatomegaly, not elsewhere classified (principal) | CPT/HCPCS: 76981 ==

== ENCOUNTER 2025-02-02 08:22 | Outpatient (AMB) | payer OTHER, SELFPAY ==
--- NOTE | 2025-02-02 08:24 | A.OFFVIS_ITS ---
Vital Signs 02/02/25 08:27 Height 5 ft 3 in Weight 224 lb 13.944 oz BMI 39.8 BP 134/72 Blood Pressure Location Rt brachial Position Sitting Pulse 79 Pulse Source Pulse Oximeter Pulse Oximetry (%) 95 Oxygen Delivery Method Room Air Intake Visit Reasons: T2DM Intake Note: Patient presents today for a follow-up on Type 2 Diabetes Mellitus: Last Diabetic eye exam was on: 01/09/2025, [facility] Last Podiatry exam was on: Patient does not see a Golf Ball Marker Most recent HbA1c: 6.9%, 02/02/2025 Random Glucose- 182 mg/dL, Today Cell Inspector Required: No Accompanied by: Self / Same As Patient Allergies Penicillins Allergy (Intermediate, Verified 02/02/25 08:26) Anaphylaxis Medication List - Last Reconciled 02/02/25 by Arlet Mendez PA-C aspirin 81 mg PO DAILY blood sugar diagnostic test twice a day cholecalciferol (vitamin D3) 50 mcg PO DAILY 90 days empagliflozin (Jardiance) 25 mg PO DAILY 90 days glipizide 5 mg PO BID 90 days lisinopril 10 mg PO DAILY 90 days metformin 1,000 mg (2 x 500 mg) PO BID 90 days simvastatin 20 mg PO BEDTIME tirzepatide (Mounjaro) 5 mg (0.5 mL) subcut QWEEK HPI HPI T2DM: Details: Patient is a 59-year-old female with a significant past medical history HDL, hypertension and type 2 diabetes presenting today for a consult regarding her diabetes. Endo: Dm: She states that she was diagnosed with diabetes around the age of 45. Her A1c today is 6.9. She is currently on mounjaro 5 mg weekly, glipizide 5 mg bid, metformin 1000 mg twice a day, and Jardiance 25 mg daily. -She did not tolerate the higher dose of ozempic. She has had n/v despite watching her diet. She is also not impressed with the lack of weight loss. She has tried trulicity but had nausea and elevated blood sugars. She is trying to pick healthier options for eating but upon review with her does appear to eat a lot of carbohydrates. Reports having diabetic education in the past. No fam hx of dm CV: Blood pressure today in the office is 134/72. She is on lisinopril 10 mg. Cholesterol is managed with simvastatin 20 mg. GI: Reviewed last LFTs were elevated. They have been stable for years. Psych: having an increase of stressors lately like father in skilled nursing, mother living alone at [facility], daughter having a baby boy in a few weeks. She states she is trying to take care of everyone. She is seeing her pcp soon and states she plans to discuss her depressive sx. She is looking for a therapist right now. She does not want medication or a sooner appointment with pcp. 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 Current occupational exposures/hazards: No Cognitive needs: No Hearing needs: No Vision needs: Yes (glasses) Female Reproductive History Menstrual Age of Menarche: 12 Physical Exam Vital Signs: Last Vital Signs Pulse 79 02/02/25 08:27 BP 134/72 02/02/25 08:27 Pulse Ox 95 02/02/25 08:27 Oxygen Delivery Method Room Air 02/02/25 08:27 BMI result Body Mass Index 39.8 Const Orientation/consciousness: patient oriented x3 Neck Neck: Yes no lymphadenopathy Thyroid: Thyroid normal Carotids: no bruits Resp Auscultation: clear to auscultation bilaterally Cardio Rate: regular rate Rhythm: regular rhythm Heart sounds: S1 normal heart sound present and S2 normal heart sound present Peripheral pulses: dorsalis pedis present Neuro General: patient oriented x3, gait normal and no focal motor deficits Extrem Other: Monofilament sensation intact bilaterally. Vibratory sensation intact bilaterally. Skin intact. General: Yes normal to inspection Results AMB Hemoglobin A1c AMB Hemoglobin A1c 6.9 % Last Edit by SHANT Lua on 02/02/25 08:43 Results Reviewed Results Reviewed: Laboratory Last Values Glucose (Clinic) 182 mg/dL (60-115) H 02/02/25 08:31 Hgb A1c (Clinic) 6.9 % (4.0-6.0) H 02/02/25 08:39 Laboratory Tests 10/07/24 11/08/24 02/02/25 15:13 07:20 08:31 Creatinine 0.69 Estimated GFR > 60 Glucose (Clinic) 182 H Hgb A1c (Clinic) 7.8 H Triglycerides 92 Cholesterol 105 LDL Cholesterol, Calc 37 HDL Cholesterol 50 IMPRESSION: Hepatomegaly and hepatic steatosis. The median shear wave velocity in the liver is 1.66 m/s, corresponding to a median liver stiffness of 8.57 kPa. The IQR/median value is 0.10. This is indicative of a quality data set. Findings are indicative of a low elastography value which rules out advanced chronic liver disease in asymptomatic patients. Assessment & Plan Assessment & Plan (1) Uncontrolled diabetes mellitus with hyperglycemia: Code(s): E11.65 - Type 2 diabetes mellitus with hyperglycemia Category: Medical Qualifiers: Diabetes mellitus type: type 2 Qualified Code(s): E11.65 - Type 2 diabetes mellitus with hyperglycemia Plan: increase mounjaro to 7.5 mg weekly continue jardiance 25 mg daily continue metformin 1000 mg bid stop glipizide labs prior to appointment f/u in 3 months (2) Hyperlipidemia: Code(s): E78.5 - Hyperlipidemia, unspecified Category: Medical Qualifiers: Hyperlipidemia type: pure hypercholesterolemia Qualified Code(s): E78.00 - Pure hypercholesterolemia, unspecified Plan: continue simvastatin (3) Essential hypertension: Code(s): I10 - Essential (primary) hypertension Category: Medical Plan: wnl continue current plan Orders: Orders AMB Hemoglobin A1c Today E11.65 - Type 2 diabetes mellitus with hyperglycemia Comprehensive [place]. Panel Fast Today E11.65 - Type 2 diabetes mellitus with hyperglycemia, E78.00 - Pure hypercholesterolemia, unspecified, I10 - Essential (primary) hypertension Hemoglobin A1c Today E11.65 - Type 2 diabetes mellitus with hyperglycemia, E78.00 - Pure hypercholesterolemia, unspecified, I10 - Essential (primary) hypertension, R73.01 - Impaired fasting glucose Microalbumin, Random (w Creat) Today E11.65 - Type 2 diabetes mellitus with hyperglycemia, E78.00 - Pure hypercholesterolemia, unspecified, I10 - Essential (primary) hypertension Medications: New tirzepatide (Mounjaro) 7.5 mg (0.5 mL) subcut QWEEK 2 mL 3RF Discontinued tirzepatide (Mounjaro) Discontinued Reason: Doctor's Order 5 mg (0.5 mL) subcut QWEEK 2 mL 3RF glipizide Discontinued Reason: Doctor's Order 5 mg PO BID 90 days 180 tabs 0RF Coding Level of Care Code Est Pt Level 4 (85201) Complex EM visit Add On G2211 Diagnoses Uncontrolled type 2 diabetes mellitus with hyperglycemia E11.65 Diabetes mellitus type: type 2 Pure hypercholesterolemia E78.00 Hyperlipidemia type: pure hypercholesterolemia Essential hypertension I10
[2025-02-02 08:27] VITALS: BP 134/72; PULSE 79; O2SAT 95; BMI 39.8
[2025-02-02 08:34] LABS: Glucose, Whole Blood 182 mg/dL (60-115)
== END 2025-02-02 09:05 | disposition home or self-care (01) ==
LOC: HO.ENCR 08:22
PROVIDERS: PCP Internal Medicine; Visit Provider Physician Assistant
DX: E11.65 Type 2 diabetes mellitus with hyperglycemia (principal); E78.00 Pure hypercholesterolemia, unspecified; I10 Essential (primary) hypertension

== ENCOUNTER → 2025-02-02 08:22 | Outpatient (BNVA) | payer OTHER, SELFPAY | PROVIDERS: PCP Internal Medicine; Visit Provider Physician Assistant | DX: E11.65 Type 2 diabetes mellitus with hyperglycemia (principal); E78.00 Pure hypercholesterolemia, unspecified; I10 Essential (primary) hypertension; Z79.84 Long term (current) use of oral hypoglycemic drugs; Z79.899 Other long term (current) drug therapy | CPT/HCPCS: 82947; 83036 ==

== ENCOUNTER 2025-03-24 12:39 | Outpatient (REF) | payer OTHER, SELFPAY | END 2025-03-24 12:40 | disposition home or self-care (01) | LOC: HO.MAMMO 12:39 | PROVIDERS: PCP Internal Medicine; Visit Provider Internal Medicine | DX: Z12.31 Encounter for screening mammogram for malignant neoplasm of breast (principal) | CPT/HCPCS: 77063; 77067 ==

== ENCOUNTER → 2025-03-24 13:00 | Outpatient (BNV) | payer OTHER, SELFPAY | PROVIDERS: PCP Internal Medicine; Visit Provider Internal Medicine | DX: Z12.31 Encounter for screening mammogram for malignant neoplasm of breast (principal) | CPT/HCPCS: 77063; 77067 ==

== ENCOUNTER 2025-05-04 08:20 | Outpatient (AMB) | payer OTHER, SELFPAY ==
[2025-05-04 08:28] VITALS: BP 116/60; PULSE 86; O2SAT 96; BMI 39.4
--- NOTE | 2025-05-04 08:28 | A.OFFVIS_ITS ---
Vital Signs 05/04/25 08:28 Height 5 ft 3 in Weight 222 lb 10.67 oz BMI 39.4 BP 116/60 Blood Pressure Location Rt brachial Position Sitting Pulse 86 Pulse Source Pulse Oximeter Pulse Oximetry (%) 96 Oxygen Delivery Method Room Air Intake Visit Reasons: T2DM Intake Note: Patient presents today for a follow-up on Type 2 Diabetes Mellitus: Last Diabetic eye exam was on: 01/09/2025, [facility] Last Podiatry exam was on: Patient does not see a Group Leader [employer] Testing Most recent HbA1c: 6.5%, 05/04/2025 Random Glucose- 125 mg/dL, Today Tool Design Drafter Required: No Accompanied by: Self / Same As Patient Allergies Penicillins Allergy (Intermediate, Verified 05/04/25 08:30) Anaphylaxis HPI HPI T2DM: Details: Patient is a 59-year-old female with a significant past medical history HDL, hypertension and type 2 diabetes presenting today for a consult regarding her diabetes. Endo: Dm: She states that she was diagnosed with diabetes around the age of 45. Her A1c was 6.9 and today it is 6.5. She is currently on mounjaro 7.5 mg weekly, metformin 1000 mg twice a day, and Jardiance 25 mg daily. -She did not tolerate the higher dose of ozempic. She has had n/v despite watching her diet. She is also not impressed with the lack of weight loss. She has tried trulicity but had nausea and elevated blood sugars. She is trying to pick healthier options for eating but upon review with her does appear to eat a lot of carbohydrates. Reports having diabetic education in the past. No fam hx of dm CV: Blood pressure today in the office is 116/60. She is on lisinopril 10 mg. Cholesterol is managed with simvastatin 20 mg. GI: Reviewed last LFTs were elevated. They have been stable for years. Psych: having an increase of stressors lately like father in snf, mother living alone at condo, daughter having a baby boy in a few weeks. She states she is trying to take care of everyone. She is seeing her pcp soon and states she plans to discuss her depressive sx. She is looking for a therapist right now. She does not want medication or a sooner appointment with pcp. 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 Current occupational exposures/hazards: No Cognitive needs: No Hearing needs: No Vision needs: Yes (glasses) Female Reproductive History Menstrual Age of Menarche: 12 Physical Exam Const Orientation/consciousness: patient oriented x3 Neck Neck: Yes no lymphadenopathy Thyroid: Thyroid normal Carotids: no bruits Resp Auscultation: clear to auscultation bilaterally Cardio Rate: regular rate Rhythm: regular rhythm Heart sounds: S1 normal heart sound present and S2 normal heart sound present Peripheral pulses: dorsalis pedis present Neuro General: patient oriented x3, gait normal and no focal motor deficits Extrem Other: Monofilament sensation intact bilaterally. Vibratory sensation intact bilaterally. Skin intact. General: Yes normal to inspection Results AMB Hemoglobin A1c AMB Hemoglobin A1c 6.5 % Last Edit by SHANT Lua on 05/04/25 08:42 Results Reviewed Results Reviewed: Laboratory Tests 11/08/24 02/02/25 02/02/25 07:20 08:31 08:39 Creatinine 0.69 Estimated GFR > 60 Glucose (Clinic) 182 H Hgb A1c (Clinic) 6.9 H C-Peptide 5.14 H AST 36 H ALT 24 Alkaline Phosphatase 56 Triglycerides 92 Cholesterol 105 LDL Cholesterol, Calc 37 HDL Cholesterol 50 US/US abdomen comp w elastography IMPRESSION: Hepatomegaly and hepatic steatosis. Assessment & Plan Assessment & Plan (1) Uncontrolled diabetes mellitus with hyperglycemia: Code(s): E11.65 - Type 2 diabetes mellitus with hyperglycemia Category: Medical Qualifiers: Diabetes mellitus type: type 2 Qualified Code(s): E11.65 - Type 2 diabetes mellitus with hyperglycemia Plan: currently well controlled continue current plan f/u 3 months or sooner prn labs prior to appointment (2) Essential hypertension: Code(s): I10 - Essential (primary) hypertension Category: Medical Plan: wnl continue lisinopril (3) Hyperlipidemia: Code(s): E78.5 - Hyperlipidemia, unspecified Category: Medical Qualifiers: Hyperlipidemia type: pure hypercholesterolemia Qualified Code(s): E78.00 - Pure hypercholesterolemia, unspecified Plan: well controlled with simvastatin Orders: Orders AMB Hemoglobin A1c Today E11.65 - Type 2 diabetes mellitus with hyperglycemia Coding Level of Care Code Est Pt Level 4 (08964) Complex EM visit Add On G2211 Diagnoses Uncontrolled type 2 diabetes mellitus with hyperglycemia E11.65 Diabetes mellitus type: type 2 Essential hypertension I10 Pure hypercholesterolemia E78.00 Hyperlipidemia type: pure hypercholesterolemia
[2025-05-04 08:37] LABS: Glucose, Whole Blood 125 mg/dL (60-115)
--- OUTSIDE RECORDS SUMMARY | 2025-05-04 08:42 | XMS_ITS | Encounter Summary ---
Author Organization [facility] Address [address] [place] [address] Care Team Providers Care Coach Cleaner Name Role Phone Minoo Hernández MD Primary Care Provider [facility], Pcp [facility] Encounter Details Date Type Department Care Team Description 11/11/2020 Telephone Adult Medicine [address] [address] Minoo Hernández MD Social History Tobacco Use [...] encounter Miscellaneous Notes * Telephone Encounter - Jo Conway R.N. - 11/11/2020 4:59 PM EST Pt to call if she is not scheduled as referred , and she will call if she is symptomatic * Telephone Encounter - Minoo Hernández MD - 11/11/2020 4:53 PM EST I received communication from [facility] cardiology. Carotid artery ultrasound showed significant stenosis left carotid artery, right carotid artery wasoccluded. They ordered a CAT scan and referred her to vascular ? documented in this encounter Plan of Treatment Not on file documented as of this encounter Visit Diagnoses Not on filedocumented in this encounter Care Teams Coach Cleaner Relationship Specialty Start Date End Date Minoo Hernández MD PCP - General Internal Medicine [facility] documented as of this encounter
== END 2025-05-04 08:51 | disposition home or self-care (01) ==
LOC: HO.ENCR 08:21
PROVIDERS: PCP Internal Medicine; Visit Provider Physician Assistant
DX: E11.65 Type 2 diabetes mellitus with hyperglycemia (principal); I10 Essential (primary) hypertension; E78.00 Pure hypercholesterolemia, unspecified

== ENCOUNTER → 2025-05-04 08:20 | Outpatient (BNVA) | payer OTHER, SELFPAY | PROVIDERS: PCP Internal Medicine; Visit Provider Physician Assistant | DX: E11.65 Type 2 diabetes mellitus with hyperglycemia (principal); I10 Essential (primary) hypertension; E78.00 Pure hypercholesterolemia, unspecified | CPT/HCPCS: 82947; 83036 ==

== ENCOUNTER 2025-06-17 07:28 | Outpatient (AMB) | payer OTHER, SELFPAY ==
--- NOTE | 2025-06-17 07:31 | A.OFFVIS_ITS ---
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 Allergies Penicillins Allergy (Intermediate, Verified 05/04/25 08:30) Anaphylaxis PFSH Medical History Morbid obesity Diabetes HTN (hypertension) Surgical History H/O: hysterectomy History of hysterectomy History of tubal ligation Family History Father Dementia Lung cancer Skin cancer Mother Hypertension Social History Housing: House Alcohol intake: never Patient Tobacco Use Status: Former Tobacco user Tobacco use type: Cigarette Cigarette Packs Per Day: 0.5 Cigarettes Per Day: 10 e-Cigarette/Vaping Use: Former Use Second Hand Smoke Exposure: Yes service: Yes Current occupational status: employed 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
[2025-06-17 07:38] VITALS: BP 128/72; BMI 35.8
--- NOTE | 2025-06-17 07:38 | MHC.OFFVIS ---
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 Teacher Required: No Gospel Singer: Gospel Singer Present Allergies Penicillins Allergy (Intermediate, Verified 06/17/25 07:41) Anaphylaxis Medication List - Last Reconciled 06/17/25 by Sobia Green LPN aspirin 81 mg PO DAILY blood sugar diagnostic test twice a day cholecalciferol (vitamin D3) 50 mcg PO DAILY 90 days empagliflozin (Jardiance) 25 mg PO DAILY 90 days lisinopril 10 mg PO DAILY 90 days metformin 1,000 mg (2 x 500 mg) PO BID 90 days simvastatin 20 mg PO BEDTIME tirzepatide (Mounjaro) 7.5 mg (0.5 mL) subcut QWEEK Is last menstrual period known: No Post menopausal: Yes Patient : No HPI Comments Details: Patient is a 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 Mail Room Clerk concerns: None. Currently not sexually active. Denies any vaginal dryness or irritation. Attempting to eat a healthy diet with calcium and vitamin D and stays active with exercise-walks. History of hysterectomy due to heavy menstrual Last mammogram; 2019. Cologuard is up-to-date. Denies any family history of breast, ovarian or colon cancer. 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 Current occupational exposures/hazards: No Cognitive needs: No Hearing needs: No Vision needs: Yes (glasses) Female Reproductive History Menstrual Age of Menarche: 12 control method: none Menopause type: surgical Total pregnancies: 2 Number of Living Children: 1 History of abnormal pap smear: No History of STI: No Date of Mammogram: 04/10/25 History of abnormal mammogram: Yes Review of Systems Const All systems reviewed & are unremarkable except as noted in HPI and below Reports as per HPI Eyes Reports no additional complaints ENT Reports no additional complaints Card Reports no additional complaints Resp Reports no additional complaints GI Reports as per HPI and Reports no additional complaints Reports as per HPI Musc Reports no additional complaints Skin/Breast Reports as per HPI Neuro Reports no additional complaints Psych Reports no additional complaints Endo Reports no additional complaints Robert/Lymph Reports no additional complaints Aller/Immun Reports no additional complaints Physical Exam Vital Signs: Last Vital Signs BP 128/72 06/17/25 07:38 BMI result Body Mass Index 35.8 Const General: cooperative, healthy appearing, no acute distress, well developed and alert Orientation/consciousness: patient oriented x3 HEENT Head: Yes normal to inspection Eyes General: appearance normal, both eyes and all related structures Neck Neck: Yes normal visual inspection Thyroid: Thyroid normal Chest Chest palpation & inspection: normal inspection of the chest and other (no puckering, dimpling, peau de orange, retraction, discharge, masses) Breast/axilla inspection: normal inspection of the breasts Breast/axilla palpation: normal palpation of the breasts Resp Effort & Inspection: normal respiratory effort GI Inspection: Yes normal to inspection Palpation (GI): Soft to palpation Rectal Exam - Female: deferred General: Yes bladder normal to palpation External Female Exam: normal external appearance and normal appearance of the urethra Speculum Exam - Vagina: normal appearance of the vagina, normal palpation, normal vaginal discharge and vagina atrophic Speculum Exam - Cervix: normal appearance of the cervix and Cervix absent (Vaginal cuff no lesions or nodules) Bimanual exam- vagina & uterus: normal bimanual exam, normal palpation, bladder normal to palpation and uterus absent Bimanual Exam- Adnexa, other: no masses Skin General skin exam: no rashes or lesions noted Rashes: no rashes Neuro General: patient oriented x3 Cognition (Neuro): normal cognition Extrem General: Yes normal to inspection Psych Attitude: cooperative Thought process: Normal thought process present Assessment & Plan Assessment & Plan (1) Encounter for well woman exam with routine gynecological exam: Code(s): Z01.419 - Encounter for gynecological examination (general) (routine) without abnormal findings Category: Medical Plan Discussed: Current recommendations for pap smears per ASCCP guidelines. Breast awareness, periodic self breast exams and yearly mammogram. Maintain a healthy lifestyle, well balanced diet including Calcium 1,200 mg and Vitamin D 600 IU daily, and routine exercise. Patient verbalizes understanding and agrees to the plan of care. She was given opportunity to ask questions and all questions were answered to the best of my ability. RTO in 1 year for annual glost tile shader exam. This note is constructed using voice recognition software. While every effort has been made to ensure accuracy, denial resolution specialist errors may have been included. Coding Level of Care Code Est Pt Prev Care 40-64y(84549) Diagnoses Encounter for well woman exam with routine gynecological exam Z01.419
== END 2025-06-17 08:09 | disposition home or self-care (01) ==
LOC: HO.HWS 07:28
PROVIDERS: PCP Internal Medicine; Visit Provider Advanced Practice Midwife
DX: Z01.419 Encounter for gynecological examination (general) (routine) without abnormal findings (principal)
CPT/HCPCS: 99396; 99459

== ENCOUNTER 2025-07-14 16:09 | Outpatient (AMB) | payer OTHER, SELFPAY ==
--- NOTE | 2025-07-14 16:11 | MHC.PC.OV ---
Vital Signs 07/14/25 16:12 Height 5 ft 3 in Weight 219 lb 8 oz BMI 38.9 BP 120/72 Blood Pressure Location Lt brachial Position Sitting Pulse 100 Pulse Source Pulse Oximeter Pulse Oximetry (%) 93 Oxygen Delivery Method Room Air Intake Visit Reasons: bp,dm Mold Release Worker Required: No Accompanied by: Self / Same As Patient Allergies Penicillins Allergy (Intermediate, Verified 07/14/25 16:32) Anaphylaxis Medication List - Last Reconciled 07/14/25 by Miranda Trejo MD aspirin 81 mg PO DAILY blood sugar diagnostic test twice a day cholecalciferol (vitamin D3) 50 mcg PO DAILY 90 days empagliflozin (Jardiance) 25 mg PO DAILY 90 days lisinopril 10 mg PO DAILY 90 days metformin 1,000 mg (2 x 500 mg) PO BID 90 days simvastatin 20 mg PO BEDTIME tirzepatide (Mounjaro) 7.5 mg (0.5 mL) subcut QWEEK Tobacco use date assessed: 07/14/25 Dental Screening Dental Screen Date: 07/14/25 Did you have a dental visit in the last 12 months?: Yes Did you have a dental problem in the last 6 months where you did not have access to dental care?: No Was dental information given to patient?: Patient has dentist HPI HPI Comments History of Present Illness Details The patient is a 59-year-old female presenting for a follow-up visit for management of chronic conditions, including diabetes. Her last hemoglobin A1c was 6.5% in April. She has an upcoming appointment with her framing specialist on August 03. She also has hypertension and hyperlipidemia and labs were ordered. Her LDL goal should be less than 70. Her current medications include baby aspirin, vitamin D, Jardiance 25 mg, lisinopril 10 mg, metformin 1000 mg twice daily, simvastatin 20 mg, and Mounjaro 7.5 mg once a week. She reports no problems with her medications but notes her hair has been thinning. The decision was made at her last endocrinology visit to maintain the current Mounjaro dose due to recent life stressors, including her father's passing and mother's illness. The patient has a history of penicillin allergy. She is a former smoker, having quit two years ago. She has a history of very mild depression, with a recent PHQ-9 score of 4. Regarding health maintenance, she is up to date with her mammogram for this year and had a gynecology appointment a few weeks ago. Her last Cologuard test was negative, with the next one due in 2027. Her last bone densitometry was in 2023, and the next is scheduled for 2025. 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 1. Little interest or pleasure in doing things: not at all 2. Feeling down, depressed, or hopeless: not at all 3. Trouble falling or staying asleep, or sleeping too much: several days 4. Feeling tired or having little energy: several days 5. Poor appetite or overeating: several days 6. Feeling bad about yourself - or that you are a failure or have let yourself or your family down: several days 7. Trouble concentrating on things, such as reading the newspaper or watching television: not at all 8. Moving or speaking so slowly that other people could have noticed. Or the opposite - being so fidgety or restless that you have been moving around a lot more than usual: not at all 9. Thoughts that you would be better off or of hurting yourself in some way: not at all Total score: 4 Depression Screening Interpretation: Positive Depression Screening Follow-up: Existing condition and Follow-up Visit Requested Depression Screening Done: Yes 85073 - PHQ-9 Billing: Yes Source: Developed by Drs. Gilbert Dumont, Supriya Cifuentes, Abilio Moffett and colleagues, with an educational brielle from [employer]. Thrive Questionnaire Date Thrive assessed: 02/12/25 I am a: Patient What is your living situation today?: I have a steady place to live Within the past 12 months, did the food you bought not last and you didn't have the money to get more?: Sometimes True Within the past 12 months, did you worry whether your food would run out before you got money to buy more?: Never true Do you have trouble paying for medicines?: No Do you have trouble getting transportation to medical appointments?: No Do you have trouble paying your heating and electricity bill?: No Do you have trouble taking care of your child, family member or friend?: No Do you have trouble with day-to-day activities such as bathing, preparing meals, shopping, managing finances, etc.?: No Are you currently unemployed and looking for a job?: No Are you interested in more education?: No Please select the resources that you would like help with: None Currently or been in a relationship where the following occur: I choose not to answer THRIVE Score: 1 AUDIT C Alcohol Use Questionnaire (AUDIT-C) 1. How often do you have a drink containing alcohol?: Never 3. How often do you have six or more drinks on one occasion?: Never Total Score: 0 Score Reviewed/Action Taken: No GARRY-7 AMB Questionnaire GARRY-7 Date GARRY - 7 assessed: 07/14/25 Feeling nervous, anxious, or on edge: 0 = Not at all Not being able to stop or control worryin = Not at all Worrying too much about different things: 0 = Not at all Trouble relaxin = Not at all Being so restless that it is hard to sit still: 0 = Not at all Becoming easily annoyed or irritable: 0 = Not at all Feeling afraid as if something awful might happen: 0 = Not at all Total GARRY-7 score (0-4 normal; 5-9 mild; 10-14 moderate; 15-21 severe): 0 Source: Developed by Supriya Gaona B.W. Esau, Abilio Moffett and colleagues, with an educational brielle from [employer]. GARRY-7 Assessment Billing GARRY-7 Assessment Tool: GARRY-7 Assessment 30775 Review of Systems Const All systems reviewed & are unremarkable except as noted in HPI and below Card Denies chest pain at rest, Denies chest pain with activity, Denies edema, Denies irregular heart rhythm, Denies claudication, Denies dyspnea, Denies dyspnea on exertion, Denies orthopnea, Denies paroxysmal nocturnal dyspnea and Denies slow heart rate Resp Denies cough, Denies dyspnea and Denies dyspnea on exertion GI Denies abdominal pain, Denies change in bowel habits, Denies excessive flatus, Denies nausea and Denies vomiting Physical exam (Primary Care) Vital Signs: Last Vital Signs Pulse 100 07/14/25 16:12 BP 120/72 07/14/25 16:12 Pulse Ox 93 07/14/25 16:12 Oxygen Delivery Method Room Air 07/14/25 16:12 BMI result Body Mass Index 38.9 BMI Assessment/Plan discussion: High BMI High, discussed plan: lifestyle, weight reduction, dietary and physical activity Tobacco/Smoking Status: Tobacco use Status Tobacco use date assessed 07/14/25 07/14/25 16:18 Patient Tobacco Use Status Former Tobacco user 07/14/25 16:18 Tobacco use type Cigarette 07/14/25 16:18 e-Cigarette/Vaping Use Former Use 07/14/25 16:18 PHQ-9: PHQ-9 Score PHQ-9: Total score 4 07/14/25 16:18 Depression Screening Interpretation: Positive Depression Screening Follow-up: Existing condition and Follow-up Visit Requested Thrive Assessment: Date of Thrive Assessment Date Thrive assessed 02/12/25 07/14/25 16:18 Currently or been in a relationship where the following occur: I choose not to answer Resp Effort & Inspection: normal respiratory effort Auscultation: clear to auscultation bilaterally Cardio Jugular venous distension: no JVD Rate: regular rate Rhythm: regular rhythm Heart sounds: S1 normal heart sound present and S2 normal heart sound present Extrem General: Yes full ROM Coding Level of Care Code Est Pt Level 4 (43725) Complex EM visit Add On G2211 Diagnoses Uncontrolled type 2 diabetes mellitus with hyperglycemia E11.65 Diabetes mellitus type: type 2 Essential hypertension I10 Dyslipidemia E78.5 Hair loss L65.9 Additional Codes GARRY-7 Assessment Billing - GARRY-7 Assessment Tool: GARRY-7 Assessment 86253 ([id number]) PHQ-9 - 72478 - PHQ-9 Billing: Yes ([id number]) Time Spent (min) 22 Assessment & Plan Assessment & Plan (1) Uncontrolled diabetes mellitus with hyperglycemia: Code(s): E11.65 - Type 2 diabetes mellitus with hyperglycemia Category: Medical Qualifiers: Diabetes mellitus type: type 2 Qualified Code(s): E11.65 - Type 2 diabetes mellitus with hyperglycemia (2) Essential hypertension: Code(s): I10 - Essential (primary) hypertension Category: Medical (3) Dyslipidemia: Code(s): E78.5 - Hyperlipidemia, unspecified Category: Medical (4) Hair loss: Code(s): L65.9 - Nonscarring hair loss, unspecified Category: Medical Plan Plan 1. Diabetes Mellitus The patient's last A1c was 6.5% and her condition is stable. She will continue her current medications, including Jardiance, metformin, and Mounjaro 7.5 mg weekly. Any adjustments to her Mounjaro dosage will be deferred to her framing specialist, whom she will see on August 03. Orders will be placed for a comprehensive metabolic panel, a lipid panel, and a urine test to be completed before her endocrinology appointment. 2. Alopecia The patient reported hair thinning. To investigate a potential cause, a thyroid panel will be added to her upcoming labs. 3. Essential hypertension Continue lisinopril. Blood pressure goal is equal or less than 130/80. 4. Mild Depression The patient reports very mild depression with a PHQ-9 of 4. No medication changes were made at this time. 5. Hyperlipidemia Continue statins. LDL goal is less than 70. Orders: Orders Lipid Panel Today E78.5 - Hyperlipidemia, unspecified Comprehensive [place]. Panel Fast Today E11.65 - Type 2 diabetes mellitus with hyperglycemia Thyroid Stimulating Hormone Today L65.9 - Nonscarring hair loss, unspecified Vitamin B12 and Folate Today E53.8 - Deficiency of other specified B group vitamins
[2025-07-14 16:12] VITALS: BP 120/72; PULSE 100; O2SAT 93; BMI 38.9
== END 2025-07-14 16:46 | disposition home or self-care (01) ==
LOC: HO.HMCH 16:09
PROVIDERS: PCP Internal Medicine; Visit Provider Internal Medicine
DX: E11.65 Type 2 diabetes mellitus with hyperglycemia (principal); I10 Essential (primary) hypertension; E78.5 Hyperlipidemia, unspecified; L65.9 Nonscarring hair loss, unspecified

== ENCOUNTER → 2025-07-14 16:09 | Outpatient (BNVA) | payer OTHER, SELFPAY | PROVIDERS: PCP Internal Medicine; Visit Provider Internal Medicine | DX: E11.65 Type 2 diabetes mellitus with hyperglycemia (principal); I10 Essential (primary) hypertension; E78.5 Hyperlipidemia, unspecified; L65.9 Nonscarring hair loss, unspecified; E53.8 Deficiency of other specified B group vitamins; Z79.899 Other long term (current) drug therapy | CPT/HCPCS: 96127 ==

== ENCOUNTER 2025-07-29 06:10 | Outpatient (REF) | payer OTHER, SELFPAY ==
[2025-07-29 11:42] LABS: Alanine Aminotransferase 22 U/L (0-31); Albumin Level 4.2 g/dL (3.5-5.0); Alkaline Phosphatase 75 U/L (39-117); Anion Gap 16 (12-20); Aspartate Amino Transferase 42 U/L (5-31); Blood Urea Nitrogen 21 mg/dL (9-16); Calcium 9.9 mg/dL (8.4-10.2); Carbon Dioxide 24 mmol/L (22-29); Chloride 107 mmol/L (96-108); Cholesterol 119 mg/dL (<200); Estimated Glomerular Filt Rate > 60; HDL Cholesterol 45 mg/dL (>40); Potassium 4.7 mmol/L (3.3-5.1); Sodium 142 mmol/L (135-145); Total Protein 7.5 g/dL (6.5-8.0); Triglycerides 172 mg/dL (<150)
[2025-07-29 11:43] LABS: Thyroid Stimulating Hormone 0.83 uIU/mL (0.32-4.0)
[2025-07-29 11:57] LABS: Microalbum/Creatinine Ratio Ur 26.4 ug/mg cr (<30)
[2025-07-29 12:03] LABS: Folate 9.0 ng/mL (> or = 4.0); Vitamin B12 330 pg/mL (200-900)
== END 2025-07-29 06:11 | disposition home or self-care (01) ==
LOC: HO.HMGCLDS 06:10
PROVIDERS: Physician Assistant; PCP Internal Medicine; Visit Provider Internal Medicine
DX: I10 Essential (primary) hypertension (principal); E11.65 Type 2 diabetes mellitus with hyperglycemia; E53.8 Deficiency of other specified B group vitamins; E78.00 Pure hypercholesterolemia, unspecified; R80.9 Proteinuria, unspecified; E78.5 Hyperlipidemia, unspecified; L65.9 Nonscarring hair loss, unspecified
CPT/HCPCS: 36415; 80053; 80061; 82043; 82570; 82607; 82746; 83036; 84443

== ENCOUNTER 2025-08-03 07:50 | Outpatient (AMB) | payer OTHER, SELFPAY ==
[2025-08-03 07:53] VITALS: BP 134/58; PULSE 94; O2SAT 96; BMI 39.7
--- NOTE | 2025-08-03 07:53 | MHC.OFFVIS ---
Vital Signs 08/03/25 07:53 Height 5 ft 3 in Weight 223 lb 15.834 oz BMI 39.7 BP 134/58 L Blood Pressure Location Lt brachial Position Sitting Pulse 94 Pulse Source Pulse Oximeter Pulse Oximetry (%) 96 Oxygen Delivery Method Room Air Intake Visit Reasons: T2DM Intake Note: Patient present today for Type 2 Diabetes Mellitus Last Diabetic eye exam: Last exam was on 12/26/2024 by [facility] Last Podiatry Visit: Doesn't have one Random Glucose: 151 mg/dl HgA1C: 6.7% 07/29/25 Cheese Processor Required: No Accompanied by: Self / Same As Patient Allergies Penicillins Allergy (Intermediate, Verified 08/03/25 08:00) Anaphylaxis Medication List - Last Reconciled 08/03/25 by Arlet Mendez PA-C aspirin 81 mg PO DAILY blood sugar diagnostic test twice a day cholecalciferol (vitamin D3) 50 mcg PO DAILY 90 days empagliflozin (Jardiance) 25 mg PO DAILY 90 days lisinopril 10 mg PO DAILY 90 days metformin 1,000 mg (2 x 500 mg) PO BID 90 days simvastatin 20 mg PO BEDTIME tirzepatide (Mounjaro) 10 mg (0.5 mL) subcut QWEEK HPI HPI T2DM: Details: Patient is a 59-year-old female with a significant past medical history HDL, hypertension and type 2 diabetes presenting today for a consult regarding her diabetes. Endo: Dm: She states that she was diagnosed with diabetes around the age of 45. Her A1c is 6.7. She is currently on mounjaro 7.5 mg weekly, metformin 1000 mg twice a day, and Jardiance 25 mg daily. Has not noted much appetite suppression with the current dose of mounjaro. No side effects. -She did not tolerate the higher dose of ozempic. She has had n/v despite watching her diet. She is also not impressed with the lack of weight loss. She has tried trulicity but had nausea and elevated blood sugars. She is trying to pick healthier options for eating but upon review with her does appear to eat a lot of carbohydrates. Reports having diabetic education in the past. No fam hx of dm CV: Blood pressure today in the office is 134/58. She is on lisinopril 10 mg. Cholesterol is managed with simvastatin 20 mg. Psych: having an increase of stressors lately mother living alone at [facility], daughter had a baby boy. She is looking for a therapist right now. She does not want medication or a sooner appointment with pcp. 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 Current occupational exposures/hazards: No Cognitive needs: No Hearing needs: No Vision needs: Yes (glasses) Female Reproductive History Menstrual Age of Menarche: 12 Physical Exam Vital Signs: Last Vital Signs Pulse 94 08/03/25 07:53 BP 134/58 L 08/03/25 07:53 Pulse Ox 96 08/03/25 07:53 Oxygen Delivery Method Room Air 08/03/25 07:53 BMI result Body Mass Index 39.7 Const Orientation/consciousness: patient oriented x3 Neck Neck: Yes no lymphadenopathy Thyroid: Thyroid normal Carotids: no bruits Resp Auscultation: clear to auscultation bilaterally Cardio Rate: regular rate Rhythm: regular rhythm Heart sounds: S1 normal heart sound present and S2 normal heart sound present Peripheral pulses: dorsalis pedis present Neuro General: patient oriented x3, gait normal and no focal motor deficits Extrem Other: Monofilament sensation intact bilaterally. Vibratory sensation intact bilaterally. Skin intact. General: Yes normal to inspection Results Reviewed Results Reviewed: Laboratory Last Values Glucose (Clinic) 151 mg/dL (60-115) H 08/03/25 08:02 Laboratory Tests 07/29/25 08/03/25 06:20 08:02 Creatinine 0.71 Estimated GFR > 60 Glucose (Clinic) 151 H Hemoglobin A1c % 6.7 H Triglycerides 172 H Cholesterol 119 LDL Cholesterol, Calc 40 HDL Cholesterol 45 Urine Creatinine 71.94 Urine Microalbumin 19.0 Microalb/Creat Ratio 26.4 Assessment & Plan Assessment & Plan (1) Uncontrolled diabetes mellitus with hyperglycemia: Code(s): E11.65 - Type 2 diabetes mellitus with hyperglycemia Category: Medical Qualifiers: Diabetes mellitus type: type 2 Qualified Code(s): E11.65 - Type 2 diabetes mellitus with hyperglycemia Plan: increase mounjaro to 10 mg weekly cotinue metformin 1000 mg bid continue jardiance 25 mg daily f/u 3 months or sooner prn labs prior to appointment (2) Essential hypertension: Code(s): I10 - Essential (primary) hypertension Category: Medical Plan: wnl continue lisinopril (3) Hyperlipidemia: Code(s): E78.5 - Hyperlipidemia, unspecified Category: Medical Qualifiers: Hyperlipidemia type: pure hypercholesterolemia Qualified Code(s): E78.00 - Pure hypercholesterolemia, unspecified Plan: well controlled with simvastatin Orders: Orders Hemoglobin A1c Today E11.65 - Type 2 diabetes mellitus with hyperglycemia, E78.00 - Pure hypercholesterolemia, unspecified, I10 - Essential (primary) hypertension, R73.01 - Impaired fasting glucose Comprehensive Met. Panel Today E11.65 - Type 2 diabetes mellitus with hyperglycemia, E78.00 - Pure hypercholesterolemia, unspecified, I10 - Essential (primary) hypertension Medications: New tirzepatide (Mounjaro) 10 mg (0.5 mL) subcut QWEEK 2 mL 5RF Discontinued tirzepatide (Mounjaro) Discontinued Reason: Doctor's Order 7.5 mg (0.5 mL) subcut QWEEK 2 mL 3RF Coding Level of Care Code Est Pt Level 4 (75206) Complex EM visit Add On G2211 Diagnoses Uncontrolled type 2 diabetes mellitus with hyperglycemia E11.65 Diabetes mellitus type: type 2 Essential hypertension I10 Pure hypercholesterolemia E78.00 Hyperlipidemia type: pure hypercholesterolemia
[2025-08-03 08:05] LABS: Glucose, Whole Blood 151 mg/dL (60-115)
--- OUTSIDE RECORDS SUMMARY | 2025-08-03 08:51 | XMS_ITS | Encounter Summary ---
Author Organization [facility] Address [address] [place] [address] Care Team Providers Care Paragliding Instructor Name Role Phone Minoo Hernández MD Primary Care Provider [facility] Pcp Primary Care Provider Unavailabl e Reason for Visit * Reason Comments E-prescribe Rx Request Encounter Details Date Type Department Care Team Description 12/20/2020 Refill Adult Medicine [address] [address] Minoo Hernández MD E-prescribe Rx Request Social [...] N/A Patients current insurance carrier is: Payor: [employer] / Plan: [employer] $25 JIM [id number] / Product Type: HMO [id number] documented in this encounter Plan of Treatment Not on file documented as of this encounter Visit Diagnoses Not on filedocumented in this encounter Care Teams Paragliding Instructor Relationship Specialty Start Date End Date Minoo Hernández MD PCP - General Internal Medicine 05/31/20 08/08/22 [facility], Pcp PCP - General Internal Medicine 08/09/22 documented as of this encounter
--- OUTSIDE RECORDS SUMMARY | 2025-08-03 08:51 | XMS_ITS | Encounter Summary ---
Author Organization [facility] Address [address] [place] [address] Care Team Providers Care Apparel Fashion Designer Name Role Phone Tucker Coburn MD Primary Care Provider Unavail able Minoo Hernández MD Primary Care Provider Unavail [facility] Pcp Primary Care Provider Unavailabl e Reason for Visit * Reason Onset Date Comments Prior Authorization 02/17/2020 Encounter Details Date Type Department Care Team Description 02/17/2020 Telephone Adult Medicine [address] [address] Tucker Coburn MD Prior Authorization Social History Tobacco Use Types Packs/Day Years Used Date Smoking Tobacco: Every Day Cigarettes 1 Smokeless Tobacco: Never Comments:started smoking at age 20 Alcohol Use Standard Drinks/Week Comments Yes 0 (1 standard drink = 0.6 oz pur e alcohol) Social. Occasional vodka Sex Assigned at Date Recorded Not on file documented as of this encounter Miscellaneous Notes * Telephone Encounter - Ellen Love PA-C - 02/25/2020 2:23 PM EDT I have discontinued the Januvia and sent Tradjenta instead. My chart message sent to patient regarding this. Thank you. * Telephone Encounter - Amy Schaefer M.A. - 02/23/2020 2:02 PM EDT Pt must try one of the following Tradjenta Patriciautlolly Knott xr [place] reply back to p [phone] Prior Auth pool Amy Schaefer M.A. Regional Prior Authorizations Ext [id number] Fax: [phone] [place] back to p [id number] Prior Auth pool * Telephone Encounter - Amy Schaefer M.A. - 02/19/2020 1:51 PM EDT Prior auth done via form to [facility] for januvia New start Pt is also on metformin No past meds tried Dx diabetes type 2 * Telephone Encounter - Jose Miguel Cowan - 02/17/2020 10:52 AM EDT Prior Authorization for Medication-do not complete and send this encounter unless you have the fax from the pharmacy. Is this a Cover My Meds request: Yes -- Marino Code [id number] Name of Medication Januvia Dose of Medication 100mg tablets What is the RX # from the faxed refill? Not on form How does patient take this med? Not on form What Pharmacy did the fax come from: [facility] fax #: [phone] [employer] Information from fax: What Prescription Plan does the patient have? Not on form BIN/PCN if applicable: Not on form Cardholder ID: Not on form Person Code: Not on form Relationship Code: Not on form Help desk phone: Not on form documented in this encounter Plan of Treatment Not on file documented as of this encounter Visit Diagnoses Not on filedocumented in this encounter Care Teams Apparel Fashion Designer Relationship Specialty Start Date End Date Tucker Coburn MD PCP - General Internal Medicine 03/23/15 05/30/20 Minoo Hernández MD PCP - General Internal Medicine 05/31/20 08/08/22 [facility], Pcp PCP - General Internal Medicine 08/09/22 documented as of this encounter
--- OUTSIDE RECORDS SUMMARY | 2025-08-03 08:51 | XMS_ITS | Encounter Summary ---
Author Organization [facility] Address [address] [place] [address] Care Team Providers Care Variety Saw Operator Name Role Phone Tucker Coburn MD Primary Care Provider Unavail able Minoo Hernández MD Primary Care Provider Unavail [facility], Pcp Primary Care Provider Unavailabl e Encounter Details Date Type Department Care Team Description 05/05/2020 Refill Adult Medicine [address] [address] Ellen Love PA-C Social History Tobacco Use [...] hypercholesterolemia documented in this encounter Care Teams Variety Saw Operator Relationship Specialty Start Date End Date Tucker Coburn MD PCP - General Internal Medicine 03/23/15 05/30/20 Minoo Hernández MD PCP - General Internal Medicine 05/31/20 08/08/22 [facility], Pcp PCP - General Internal Medicine 08/09/22 documented as of this encounter
--- OUTSIDE RECORDS SUMMARY | 2025-08-03 08:52 | XMS_ITS | Encounter Summary ---
Author Organization [facility] Address [address] [place] [address] Care Team Providers Care Supervisor Real Estate Office Name Role Phone Tucker Coburn MD Primary Care Provider Unavail able Minoo Hernández MD Primary Care Provider Unavail able [facility], Pcp Primary Care Provider Unavailabl e Encounter Details Date Type Department Care Team Description 10/01/2018 Architectural Engineering Teacher Report Medical Records [address] [place] [address] [address] [place] [address] Social History Tobacco Use Types Packs/Day Years [...] on filedocumented in this encounter Care Teams Supervisor Real Estate Office Relationship Specialty Start Date End Date Tucker Coburn MD PCP - General Internal Medicine 03/23/15 05/30/20 Minoo Hernández MD PCP - General Internal Medicine 05/31/20 08/08/22 [facility], Pcp PCP - General Internal Medicine 08/09/22 documented as of this encounter
--- OUTSIDE RECORDS SUMMARY | 2025-08-03 08:52 | XMS_ITS | Encounter Summary ---
Author Organization [facility] Address [address] [place] [address] Care Team Providers Care Subassemblies Wirer Name Role Phone Tucker Coburn MD Primary Care Provider Unavail able Minoo Hernández MD Primary Care Provider Unavail able [facility], Pcp Primary Care Provider Unavailabl e Encounter Details Date Type Department Care Team Description 04/28/2016 Telephone [facility] [address] [place] [id number] Tucker Coburn MD Social History Tobacco Use Types Packs/Day [...] on filedocumented in this encounter Care Teams Subassemblies Wirer Relationship Specialty Start Date End Date Tucker Coburn MD PCP - General Internal Medicine 03/23/15 05/30/20 Minoo Hernández MD PCP - General Internal Medicine 05/31/20 08/08/22 [facility], Pcp PCP - General Internal Medicine 08/09/22 documented as of this encounter
--- OUTSIDE RECORDS SUMMARY | 2025-08-03 08:52 | XMS_ITS | Encounter Summary ---
Author Organization [facility] Address [address] [place] [address] Care Team Providers Care Slab Worker Name Role Phone Tucker Coburn MD Primary Care Provider Unavail able Minoo Hernández MD Primary Care Provider Unavail able [facility], Pcp Primary Care Provider Unavailabl e Encounter Details Date Type Department Care Team Description 06/11/2018 Patternmaker All Around Report Medical Records [address] [place] [address] [facility] [address] [place] [address] Social History Tobacco Use Types Packs/Day Years [...] on filedocumented in this encounter Care Teams Slab Worker Relationship Specialty Start Date End Date Tucker Coburn MD PCP - General Internal Medicine 03/23/15 05/30/20 Minoo Hernández MD PCP - General Internal Medicine 05/31/20 08/08/22 [facility], Pcp PCP - General Internal Medicine 08/09/22 documented as of this encounter
--- OUTSIDE RECORDS SUMMARY | 2025-08-03 08:53 | XMS_ITS | Encounter Summary ---
Author Organization [facility] Address [address] [place] [address] Care Team Providers Care Disk Grinder Name Role Phone Minoo Hernández MD Primary Care Provider [facility] Pcp Primary Care Provider Unavailabl e Reason for Visit * Reason Comments E-prescribe Rx Request Encounter Details Date Type Department Care Team Description 04/11/2022 Refill Adult Medicine [address] [address] Sudha Couch NP E-prescribe Rx Request Social [...] this afternoon, pt states she has left [facility] and is receiving care at another location. [...] (HCC) documented in this encounter Care Teams Disk Grinder Relationship Specialty Start Date End Date Minoo Hernández MD PCP - General Internal Medicine 05/31/20 08/08/22 [facility], Pcp PCP - General Internal Medicine 08/09/22 documented as of this encounter
--- OUTSIDE RECORDS SUMMARY | 2025-08-03 08:53 | XMS_ITS | Clinical Summary ---
Author Organization [facility] Address [address] [place] [address] Care Team Providers Care Fire Lieutenant Marine Name Role Phone [facility], Pcp Primary Care [...] 102 07/18/2021 9:54 AM EDT Temperature 36.8 C (98.3 F) 07/18/2021 9:54 AM EDT Respiratory Rate 18 07/18/2021 9:54 AM EDT [...] 07/19/2022 07/19/2021, 10/06/2020, 02/12/2020, Additional history exists TOBACCO CHECK/ADVISE 07/10/2024 07/10/2022, 04/11/2022, 07/18/2021, Additional history exists BMI CHECK/ADVISE 09/17/2024 07/18/2021, , 01/07/2021, Additional history exists INFLUENZA (#1) 2025 07/18/2021, 09/18, 10/07/2020, Additional history exists COLON CANCER SCREENING 02/07/2026 02/08/2016 PNEUMOCOCCAL VACCINE FOR HIG H RISK PATIENTS (#2) 2030 12/23/2015 (Refused) Care Teams Fire Lieutenant Marine Relationship Specialty Start Date End Date [facility], Pcp PCP - General Internal Medicine 08/09/22
== END 2025-08-03 08:32 | disposition home or self-care (01) ==
LOC: HO.ENCR 07:51
PROVIDERS: PCP Internal Medicine; Visit Provider Physician Assistant
DX: E11.65 Type 2 diabetes mellitus with hyperglycemia (principal); I10 Essential (primary) hypertension; E78.00 Pure hypercholesterolemia, unspecified

== ENCOUNTER → 2025-08-03 07:50 | Outpatient (BNVA) | payer OTHER, SELFPAY | PROVIDERS: PCP Internal Medicine; Visit Provider Physician Assistant | DX: E11.65 Type 2 diabetes mellitus with hyperglycemia (principal); I10 Essential (primary) hypertension; E78.00 Pure hypercholesterolemia, unspecified; Z79.84 Long term (current) use of oral hypoglycemic drugs | CPT/HCPCS: 82947 ==